=== PATIENT | male | born 1935 | race Caucasian/White ===

== ENCOUNTER → 2016-11-20 | Outpatient (CLI) | payer MEDICARE, BC ==
[~2016-11-20] MED LIST: ADVAIR 250/28 DISKU1 IH; ALLEGRA ALLERG180 MG PO; AMITRIPTYLINE H10 M2 PO; ASPIR LOW81 MG PO; ATROVENT I0.2 MG/1 M IH; FUROSEMIDE20 MG PO; FUROSEMIDE40 MG PO; KLOR-CON 1010 MEQ PO; LEVOFLOXACIN500 M1 PO; LEVOTHYROXINE125 MCG PO; PREDNISONE10 MG PO; SYNTHROID RP0.1 MG PO
[2016-11-20 13:27] VITALS: BP 118/71
== END ==
LOC: AMSURD 12:50
DX: I44.0 Atrioventricular block, first degree (principal); I49.9 Cardiac arrhythmia, unspecified

== ENCOUNTER → 2016-11-25 | Outpatient (CLI) | payer MEDICARE, BC ==
[2016-11-20 13:27] VITALS: BP 118/71
== END ==
LOC: LAB 09:55
DX: Z00.00 Encounter for general adult medical examination without abnormal findings (principal); I25.10 Atherosclerotic heart disease of native coronary artery without angina pectoris; G60.9 Hereditary and idiopathic neuropathy, unspecified; J45.40 Moderate persistent asthma, uncomplicated; E03.9 Hypothyroidism, unspecified

== ENCOUNTER → 2016-12-01 | Outpatient (CLI) | payer MEDICARE, BC ==
[2016-12-01 15:48] VITALS: BP 163/62
== END ==
LOC: AMSURD 14:27
DX: R00.2 Palpitations (principal)

== ENCOUNTER → 2017-01-27 | Outpatient (CLI) | payer MEDICARE, BC | LOC: LAB 11:51 | DX: E03.9 Hypothyroidism, unspecified (principal) ==

== ENCOUNTER → 2017-03-13 | Outpatient (CLI) | payer MEDICARE, BC ==
[2016-12-01 15:48] VITALS: BP 163/62
== END ==
LOC: RAD 10:35
DX: R06.02 Shortness of breath (principal); J43.9 Emphysema, unspecified; I70.90 Unspecified atherosclerosis

== ENCOUNTER → 2017-03-13 | Outpatient (CLI) | payer MEDICARE, BC ==
[2017-03-13 12:30] VITALS: BP 145/66
== END ==
LOC: LAB 11:08
DX: R06.02 Shortness of breath (principal)

== ENCOUNTER 2017-03-15 16:38 | Emergency (ER) | payer MEDICARE, BC ==
[~2017-03-15 16:38] MED LIST changes: -FUROSEMIDE20 MG PO; -FUROSEMIDE40 MG PO; -KLOR-CON 1010 MEQ PO; -LEVOFLOXACIN500 M1 PO; -PREDNISONE10 MG PO
[2017-03-15] MEDS ORDERED: LEVOFLOXACIN500 M1 PO (16:46)
[2017-03-15] MEDS ORDERED: FUROSEMIDE20 MG PO (18:35)
[2017-03-15 18:44] VITALS: BP 147/80
== END 2017-03-15 18:14 | disposition other institution (70) ==
LOC: ED 16:38
DX: J44.9 Chronic obstructive pulmonary disease, unspecified (principal); J44.1 Chronic obstructive pulmonary disease with (acute) exacerbation; I10 Essential (primary) hypertension; I50.9 Heart failure, unspecified
CPT/HCPCS: J2930

== ENCOUNTER 2017-03-15 18:14 | Inpatient (IN) | payer MEDICARE, BC ==
[~2017-03-15 18:14] MED LIST changes: +LEVOFLOXACIN500 M1 PO
[2017-03-15 18:35] VITALS: BP 167/87
[2017-03-15] MEDS ORDERED: FUROSEMIDE20 MG PO (18:35)
[2017-03-15 18:39] VITALS: BP 167/87
--- NOTE | 2017-03-15 22:30 | NUR ---
PT USING URINAL, AFTER LASIX GIVEN NOTABLE INCREASE IN OUTPUT, PT IS A/OX3, SBA WHEN GETTING UP, LS IN/EX WHEEZING AUDIBLE, REMAINS ON O2 @2L/NC, SINUS TACH ON MONITOR
[2017-03-15 23:08] VITALS: BP 145/73
[2017-03-16 03:16] VITALS: BP 157/80
[2017-03-16 06:19] VITALS: BP 149/72
--- NOTE | 2017-03-16 08:15 | NUR ---
Pt sitting up in chair. Denies pain this AM. Pt states that he feels much better this AM than yesterday. Breathing is improved, pt continues with exp wheezes throughout R lung.
[2017-03-16 11:40] VITALS: BP 132/68
--- NOTE | 2017-03-16 12:27 | NUR ---
Decreased O2 to 2L via NC.
[2017-03-16 15:03] VITALS: BP 126/60
[2017-03-16 18:41] VITALS: BP 144/76
--- NOTE | 2017-03-16 19:27 | NUR ---
Report received from Maria Del Carmen DOMINGUEZ. Patient sitting up in recliner watching TV. A/O x4. Denies pain. States has shortness of breath but it is better than it has been. States he hasn't noticed a change in shortness of breath with exertion vs sitting. Denies cough. Oxygen in place at 2 L/NC. TELE in place reading SR at 100 BPM. States having some "shaking". Currently on Albuterol tx and Solumedrol. Assessment completed. Lungs CTA but diminished. No wheezes noted. No pedal edema. Denies wants or needs at this time.
--- NOTE | 2017-03-16 20:14 | NUR ---
Up to BR to voide with assist of RN. RN noted patient to be unsteady with ambulation and cane.
--- NOTE | 2017-03-16 21:40 | NUR ---
Scheduled nebulizer tx administered. Patient states he would like to take his Elavil around 2330 per home routine.
[2017-03-16 23:01] VITALS: BP 140/71
--- NOTE | 2017-03-16 23:56 | NUR ---
Scheduled Solumedrol and HS Elavil given at this time. Elavil at this time per patient request per home routine. Watching TV. Denies pain. INT patent and flushes easily with NS. Bed alarm on. Call light in reach.
[2017-03-17] VITALS (7 sets, daily range): BP systolic 128–158; BP diastolic 62–79
--- NOTE | 2017-03-17 04:08 | NUR ---
Rests with eyes closed. No signs of pain or distress. VSS. Bed alarm on. Call light in reach.
--- NOTE | 2017-03-17 06:34 | NUR ---
States rested well and feeling better. Up to BR to try and have BM. Unsuccessful. Inquired if he would like a laxative. Refuses, states "it will come". Denies pain. IV Solumedrol given. INT patent and flushed easily with NS. PO Synthroid taken without difficulty. Heart monitor shows SR. Occasional PVC's noted. Bed alarm on. Call light in reach.
--- NOTE | 2017-03-17 07:03 | NUR ---
Report to Maria Del Carmen DOMINGUEZ.
--- NOTE | 2017-03-17 07:47 | NUR ---
Decreased O2 to 1L via NC. Pt reports that he is feeling "more normal today." States that he is still unsteady when walking and continues to c/o tremors in hands, especially after breathing tx and IV solumedrol.
--- NOTE | 2017-03-17 08:30 | NUR ---
Pt sitting up in recliner. Assessment complete as charted. O2 via NC @ 1L. Denies SOB at this time.
--- NOTE | 2017-03-17 13:48 | NUR ---
Disconnected O2 to assess saturation with and without exertion.
--- NOTE | 2017-03-17 14:45 | NUR ---
Pt working with PT. Turned off O2 to ambulate pt. Desats as charted and pt reports slightly fatigued and stops to sits fdc through 6 minute walk but recouperates quickly.
--- NOTE | 2017-03-17 15:56 | NUR ---
Pt noted to continue to sat at 91% RA while seated. Discussed with Latisha Bunch PA-C and returned pt to 1L O2 via NC.
--- NOTE | 2017-03-17 20:26 | NUR ---
Report received from Maria Del Carmen DOMINGUEZ. Patient resting supine in bed with oxygen in place at 1L/NC. States having "dry mouth". Mouth moisturizer provided by BALING MACHINE TENDER. Denies pain. No shortness of breath at rest. States when ambulating today with P.T. "had to stop and rest". INT patient to [facility]. Assessment completed. Denies further wants or needs at this time. Bed alarm on. Call light in reach.
--- NOTE | 2017-03-18 00:26 | NUR ---
Rests with eyes closed. Lying on side. No signs of pain or distress. Bed alarm on. Call light in reach.
[2017-03-18 03:04] VITALS: BP 158/82
[2017-03-18 06:22] VITALS: BP 147/69
--- NOTE | 2017-03-18 07:13 | NUR ---
Report to Analia DOMINGUEZ.
--- NOTE | 2017-03-18 10:40 | NUR ---
Shea reports to this nurse at this time that her and are discussing f/u options and new consults, information regarding ECHO and CT results faxed to , pending his reccomendations, if he suggests a f/u with tomorrow in house then we will proceed with those arrangements, and Shea may be discussing this patient with tomorrow regardless of if he can see pt in clinic due to scheduling, pt denies any recent acute changes, SOB noted with exertion, breathing stable on 1L O2 at this time, fully alert and oriented, no new concerns or needs at this time, will continue to monitor telemetry readings and pt's status
[2017-03-18 11:20] VITALS: BP 156/81
== END 2017-03-18 12:35 | disposition swing bed (61) | DRG 190 ==
LOC: MED/SURG 18:14
PROVIDERS: ADMIT Nurse Practitioner Primary Care
DX: J44.1 Chronic obstructive pulmonary disease with (acute) exacerbation (principal); I11.0 Hypertensive heart disease with heart failure; I50.21 Acute systolic (congestive) heart failure; I71.4 Abdominal aortic aneurysm, without rupture; E03.9 Hypothyroidism, unspecified; G62.9 Polyneuropathy, unspecified; R73.9 Hyperglycemia, unspecified; T38.0X5A Adverse effect of glucocorticoids and synthetic analogues, initial encounter
CPT/HCPCS: J1650; J1940; J2930; Q9967

== ENCOUNTER 2017-03-18 11:54 | Inpatient (IN) | payer MEDICARE, BC ==
[~2017-03-18] VITALS: Ht 175.3 cm; Wt 90.6 kg
[~2017-03-18 11:54] MED LIST changes: +FUROSEMIDE20 MG PO
--- NOTE | 2017-03-18 12:35 | NUR ---
PT SWITCHED OVER TO SWING BED STATUS AT THIS TIME, NO ACUTE CHANGES THIS SHIFT, UP WALKING IN THE HALLS THROUGHOUT SHIFT ON 1L O2, ORDERS TO DC TELE UPON ADMISSION TO SWING BED PROGRAM, NO NEW ORDERS AT THIS TIME, WILL CONTINUE TO MONITOR PATIENTS HEALTH STATUS THROUGHOUT SHIFT
--- NOTE | 2017-03-18 15:20 | NUR ---
PT C/O CHEST TIGHTNESS TO RAY AT THIS TIME, WILL ADMINISTER PRN XOPENEX PER RAY'S REQUEST AND CONTINUE TO ASSESS CHEST DISCOMFORT
--- NOTE | 2017-03-18 15:36 | NUR ---
AFTER XOPENEX BREATHING TX, PATIENT STATES "I'M ALL BACK TO NORMAL NOW." NO CHEST PAIN.
--- NOTE | 2017-03-18 17:44 | NUR ---
Pt denies any further chest discomfort since previous episode this afternoon, sitting up in chair at this time, denies pain, smiling affect, states earlier after his breathing tx and relaxing the pain went away, states he will notify staff if he experiences any future discomfort
[2017-03-18 18:12] VITALS: BP 170/71
--- NOTE | 2017-03-18 18:14 | NUR ---
PT IS SCHEDULED FOR F/U APPT WITH AT THE [facility] ON 03/26/17 AT 1330, WILL SET UP TRANSPORTATION METHOD IF PATIENT IS STILL AN INPATIENT AT [facility], PT NOTIFIED OF THIS APPOINTMENT
--- NOTE | 2017-03-18 18:27 | NUR ---
PT SITTING UP IN CHAIR, TALKING AND LAUGHING ON CELL PHONE, LEGS CROSSED AND APPEARS COMFORTABLE, SMILING AFFECT, DENIES NEEDS, STATES HE "FEELS FINE", BREATHING STABLE ON 1L O2 VIA NC, LUNGS CLEAR/DIMINISHED, CHAIR ALARM ON AND CALL LIGHT WITHIN REACH, DENIES ANY PAIN OR CHEST DISCOMFORT, WILL CONTINUE TO MONITOR
[2017-03-18 19:18] VITALS: BP 170/71
--- NOTE | 2017-03-18 21:36 | NUR ---
Report received from Analia DOMINGUEZ. Patient sitting up in chair. A/ox 4. Denies pain. No further chest pain episodes noted. Oxygen in place a 1L/NC. Lungs diminished all byrd. Denies cough today. INT patent to [facility]. Assessment completed. Call light in reach.
--- NOTE | 2017-03-18 22:59 | NUR ---
Oxygen was turned off earlier prior to nebulizer tx. Patient talking on phone for 20 Minutes. SAO2 checked and was 92% on RA. Oxygen replaced at 1L/NC. after nebulizer tx.
--- NOTE | 2017-03-18 23:49 | NUR ---
Sets off bed alarm. Sitting on EOB waiting on staff. Assisted to BR with one assist, gaitbelt and cane. Unsteady gait at times. Voids, assisted back to bed. Able to get self back in bed. Denies pain. Oxygen in place at 1L/NC. Bed alarm on. Call light in reach.
--- NOTE | 2017-03-19 04:18 | NUR ---
Rests supine in bed with eyes closed. Oxygen in place at 1L/NC. No signs of pain or distress. Bed alarm on. Call light in reach.
[2017-03-19 06:20] VITALS: BP 155/78
--- NOTE | 2017-03-19 07:15 | NUR ---
REPORT RECEIVED FROM BERNARD GEORGE LPN
--- NOTE | 2017-03-19 07:17 | NUR ---
Report to Ria DOMINGUEZ
--- NOTE | 2017-03-19 07:50 | NUR ---
МАРИНА FERNANDES IN WITH PATIENT.
--- NOTE | 2017-03-19 08:00 | NUR ---
PATIENT UP TO RECLINER. SHIFT ASSESSMENT COMPLETE. PATIENT ALERT AND ORIENTED X4. DENIES ANY PAIN OR DISCOMFORTS AT THIS TIME. DENIES HAVING ANY CHEST PAIN OR DISCOMFORTS AT THIS TIME. REPORTS THAT HE HAS NOT HAD ANY EPISODES OF CHEST PAIN OR DISCOMFORTS OTHER THAN ONE TIME EPISODE YESTERDAY AFTERNOON.ON OXYGEN VIA NASAL CANNULA AT 1L. REPORTS FEELING PRETTY GOOD TODAY COMPARED TO YESTERDAY. REPORTS BREATHING FEELS BETTER THAN YESTERDAY. STATES "I FEEL REALLY GOOD TODAY, I FEEL MORE STABLE" PATIENT'S CALL LIGHT WITHIN REACH. CHAIR ALARM ON.
[2017-03-19 08:32] VITALS: BP 170/71
[2017-03-19 18:01] VITALS: BP 149/70
--- NOTE | 2017-03-19 18:16 | NUR ---
Pt continues in [facility] working w/ therapies for endurance and strengthening and management of O2 in case he cannot be weaned off of it. Soledad Bunch given information on respiratory vest that pt has requested we look into. She will review and discuss it further w/ him. Pt anticipates returning to his home where he lives w/ his who is concerned about his weakness and assisting him in the bath. Pt will benefit from services upon discharge to home for SN to educate and monitor lung sounds and for therapies to work w/ him in his home environment.
--- NOTE | 2017-03-19 19:18 | NUR ---
Report received from Ria Rousseau RN
--- NOTE | 2017-03-19 19:35 | NUR ---
Pt resting in recliner, awake and a/o x 3. Denies having any pain or discomfort. Floor rounds with Ria Rousseau RN at 1928. 193 pt ambulated to the bathroom at 1930, gait steady. Used cane and gait belt. I was at pt's side.
--- NOTE | 2017-03-19 19:44 | NUR ---
REPORT GIVEN TO ALBERTO PHILLIPS
--- NOTE | 2017-03-19 21:30 | NUR ---
Pt ate pudding for evening snack, did own HS care. Currently resting in bed awake and a/o x 3, watching TV.
--- NOTE | 2017-03-20 01:16 | NUR ---
Resting in bed, eyes closed even respirations. Oxygen on at 1L/NC. Bed alarm on.
--- NOTE | 2017-03-20 04:00 | NUR ---
At 0340 bed alarm sounded. Pt found sitting up with legs hanging over the side of bed. Pt stated "I'm waiting to get up to the bathroom." Pt denied chest pain, SOB. Denied having any type of pain. Ambulated to the bathroom with cane gait belt, ceramic engineering professor sock and myself at pt side. Reviewed call light system with pt. Pt stated "I must have been a sleep still." Pt pleasant and smiling.
[2017-03-20 04:32] VITALS: BP 154/69
--- NOTE | 2017-03-20 04:48 | NUR ---
Pt oxygen continues at 1L/NC. Bed alarm on.
--- NOTE | 2017-03-20 07:16 | NUR ---
Report given to Ria Rousseau RN. Rounds made.
[2017-03-20 18:25] VITALS: BP 148/71
--- NOTE | 2017-03-20 19:20 | NUR ---
Report received from Ria Rousseau RN
--- NOTE | 2017-03-20 19:30 | NUR ---
Awake and a/o x 3. Sitting in recliner. Visitor at side. Pt denies SOB, chest pain or having any pain. Int DC. No redness, no swelling, none tender to touch. Covered with 2x2 gauze and wrapped. Pt instructed to leave on for several hours to ensure it does not bleed. Pt agreed
--- NOTE | 2017-03-21 00:27 | NUR ---
Q hourly checks done. Bed alarm on. Resting in bed with eyes closed. Respirations even. Oxygen on at 1L/NC. Pt has repositioned self
--- NOTE | 2017-03-21 01:22 | NUR ---
Report given to Leonie Larose LPN
--- NOTE | 2017-03-21 01:43 | NUR ---
Report received from Simone DOMINGUEZ. Patient rests supine in bed with eyes closed. Oxygen in place at 1L/NC. No signs of pain or distress. Bed alarm on. Call light in reach.
--- NOTE | 2017-03-21 04:57 | NUR ---
Up to BR with assist. Voids 425 ML of dark yellow urine. Denies pain. Assisted back to bed. Bed alarm on. Call light in reach.
--- NOTE | 2017-03-21 06:22 | NUR ---
Scheduled AM medications take, Moves from bed to recliner. Coffee given per request. Denies pain. Oxygen in place at 1L/NC.
[2017-03-21 06:30] VITALS: BP 130/68
--- NOTE | 2017-03-21 07:09 | NUR ---
Report to Maria Del Carmen DOMINGUEZ.
--- NOTE | 2017-03-21 09:56 | NUR ---
Pt sitting up in chair. Shift assessment complete as charted. Reports that he is feeling better and feels as though he is getting stronger. Pt on 1L O2 via NC. Continues to get SOB with activity. Pt reports no BM but feels as though he will have one today. Assist to ambulate to BR using cane. Pt is steady on ambulation.
[2017-03-21 18:20] VITALS: BP 152/74
--- NOTE | 2017-03-21 19:32 | NUR ---
Report received from Maria Del Carmen DOMINGUEZ. Patient sitting up in recliner with at bedside. Denies pain. Oxygen in place at 1L. Assessment completed. RLE with 1+ edema. Encouraged to elevate legs when sitting in chair, foot rest elevated on chair at this time. Call light in reach. Denies wants or needs.
--- NOTE | 2017-03-22 00:27 | NUR ---
Rests with eyes closed. No signs of pain or distress. Oxygen in place at 1L/NC. Bed alarm on. Call light in reach.
--- NOTE | 2017-03-22 03:56 | NUR ---
Awake, rings for assist to BR. Assisted back to bed. Denies pain. Oxygen in place at 1L/NC. Bed alarm on. Call light in reach.
[2017-03-22 06:22] VITALS: BP 140/76
--- NOTE | 2017-03-22 06:30 | NUR ---
Rested well all night. Up to BR PRN. Denies pain this AM. Oxygen in place at 1L/NC.
--- NOTE | 2017-03-22 07:16 | NUR ---
Report to Luna DOMINGUEZ.
--- NOTE | 2017-03-22 08:46 | NUR ---
Dr. Jeffery at bedside.
--- NOTE | 2017-03-22 09:02 | NUR ---
Patient alert and oriented. Denies pain. Oxygen saturation 94-95% on oxygen at 1 liter via nasal cannula. Oxygen decreased to 0.5L. Patient reports dry cough. States that he has been doing his IS and flutter valve independently every hour while awake. Denies needs or questions at this time. Fall precautions in place.
--- NOTE | 2017-03-22 10:30 | NUR ---
Oxygen saturation 92-94% on oxygen at 0.5 liters via nasal cannula. Visitor at bedside. Patient denies needs. Fall precautions in place.
--- NOTE | 2017-03-22 11:40 | NUR ---
Patient ambulated in hallway >150 feet. Steady gait noted with use of walker. Oxygen saturation with ambulation was 94-98% on oxygen at 0.5 liters via nasal cannula.
--- NOTE | 2017-03-22 15:52 | NUR ---
Patient ambulated to the kitchen and back to room 204 with one rest period. Steady gait noted with use of walker. Oxygen saturation 89-95% on room air with ambulation. Patient denies dizziness or shortness of breath. Denies pain. Denies needs or questions at this time. Fall precautions in place.
[2017-03-22 18:34] VITALS: BP 120/57
--- NOTE | 2017-03-22 20:45 | NUR ---
Report received from Luna DOMINGUEZ. Patient rests supine in bed with bed alarm on. A/Ox 4. Denies pain. SAO2 95% on RA after walking back from BR. Assessment completed. Denies wants or needs. Wants to take Elavil around 0. Watching TV. Call light in reach.
--- NOTE | 2017-03-22 23:38 | NUR ---
SAO2 93% on RA while sleeping.
--- NOTE | 2017-03-23 00:51 | NUR ---
Rests with eyes closed. No signs of pain or distress. Respirations even and non-labored on RA. Bed alarm on. Call light in reach.
--- NOTE | 2017-03-23 04:38 | NUR ---
Oxygen level spot checked at 0300 by RN INTAKE and was 93% on RA. No signs of respiratory distress. Resting well with eyes closed.
--- NOTE | 2017-03-23 06:17 | NUR ---
Awake, up in chair. Reuquests and given cup of coffee and eating his fiber bar. Denies pain. Pressure pad chair alarm on. Call light in reach.
[2017-03-23 06:24] VITALS: BP 135/69
--- NOTE | 2017-03-23 06:54 | NUR ---
Report to Luna DOMINGUEZ.
--- NOTE | 2017-03-23 07:45 | NUR ---
Patient alert and oriented. Sitting up in the recliner. Denies pain. Denies shortness of breath or dizziness. Reports productive cough in am. Sputum is pale yellow and sticky per patient. Patient denies needs or questions at this time. Fall precautions in place.
[2017-03-23 18:16] VITALS: BP 129/59
--- NOTE | 2017-03-23 22:30 | NUR ---
Report to Lis Larose, RELATIONS MANAGER
--- NOTE | 2017-03-23 22:47 | NUR ---
Report received from Maria Del Carmen DOMINGUEZ and care assumed at this time. Resting supine in bed with bed alarm on. Call light in reach. Denies pain. Assessment completed. States having a cough with very little production. "clear". Lungs CTA. +1 edemat to LLE. Scheduled HS medication taken. Denies wants or needs at this time.
--- NOTE | 2017-03-24 03:29 | NUR ---
Rests with eyes closed. No signs of pain or distress. Bed alarm on. Call lighti in reach.
--- NOTE | 2017-03-24 06:24 | NUR ---
Rested well all shift. Awake and watching TV. Takes AM medication without difficulty. Denies pain. Requests and given cup of coffee. Bed alarm on. Call light in reach.
[2017-03-24 06:27] VITALS: BP 119/72
--- NOTE | 2017-03-24 07:04 | NUR ---
Report to Luna DOMINGUEZ
--- NOTE | 2017-03-24 17:53 | NUR ---
Pt rings bathroom call light, this nurse responds, by then time I entered room pt had independently walked himself with his cane back to his recliner and was sitting down, pt educated to wait for staff assistance in order to assure safety, pt smiles and nods his head
[2017-03-24 18:37] VITALS: BP 131/65
--- NOTE | 2017-03-24 19:23 | NUR ---
Report received from Luna Cortés RN
--- NOTE | 2017-03-24 19:25 | NUR ---
Pt awake and a/o x 3, sitting in recliner, talking on cell phone.
--- NOTE | 2017-03-24 20:00 | NUR ---
Awake and a/o x 3, sitting in recliner. Denies having any chest pain, SOB, abd pain or nausea. States he continues to have slight cough. See shift assessment. Pt states he had small BM today (03/24/17). States he is passing gas.
--- NOTE | 2017-03-24 20:20 | NUR ---
Pt ambulating in hallway with GATE AGENT Romi. Wearing giat belt, shoes and using cane. Gait steady.
--- NOTE | 2017-03-24 20:50 | NUR ---
Pt Awake and a/o x 3. Had pudding for evening snack. Did own HS care. Skin on coccyx CDI, normal in color. Used incentive spirometer, able to reach 2000 x 10. Bed alarm set.
--- NOTE | 2017-03-24 22:05 | NUR ---
Resting in bed awake and a/o x 3. Denies chest pain, SOB. Denies having any pain or nausea.
--- NOTE | 2017-03-25 06:02 | NUR ---
Q hourly checks done. Bed alarm has been on. Pt ambulated x 1 to the bathroom x 1 with assistance and used cane. Currently awake and a/o x 3. Denies SOB, chest pain. Continues to have cough.
--- NOTE | 2017-03-25 06:10 | NUR ---
Pt given cup of black coffee, per pt request.
[2017-03-25 06:24] VITALS: BP 141/62
--- NOTE | 2017-03-25 07:16 | NUR ---
Report given to Bettina Chapa RN
--- NOTE | 2017-03-25 07:17 | NUR ---
report from Merissa DOMINGUEZ
--- NOTE | 2017-03-25 08:50 | NUR ---
awake, alert, up in chair at bedside, talkative, denies complaint or request
--- NOTE | 2017-03-25 10:08 | NUR ---
currently up in halls with therapy
--- NOTE | 2017-03-25 13:04 | NUR ---
report to Maria Del Carmen DOMINGUEZ
[2017-03-25] MEDS ORDERED: PREDNISONE10 MG PO (15:55)
[2017-03-25] MEDS ORDERED: ATROVENT I0.2 MG/1 M IH (15:55)
[2017-03-25] MEDS ORDERED: FUROSEMIDE40 MG PO (15:55)
[2017-03-25] MEDS ORDERED: KLOR-CON 1010 MEQ PO (15:55)
[2017-03-25 18:16] VITALS: BP 154/75
--- NOTE | 2017-03-25 19:20 | NUR ---
Report received from Maria Del Carmen Mack RN
--- NOTE | 2017-03-25 20:00 | NUR ---
Awake and a/o x 3, sitting up in recliner with feet elevated. See shift assessment
--- NOTE | 2017-03-25 20:30 | NUR ---
Awake and a/o x 3, up ambulating in hallway. Using cane, gait belt. Shoes on STRETCH MACHINE OPERATOR Romi at side.
--- NOTE | 2017-03-25 21:35 | NUR ---
At 2039 ambulated to the bathroom, voided 500mls of yellow urine. Did own HS care. Returned to recliner, elevated feet. Watching TV.
--- NOTE | 2017-03-25 21:35 | NUR ---
Ambulated to bed, used cane, gait belt, shop helper socks on. .NET ARCHITECT Romi at side. Denies chest pain, SOB. Bed alarm set.
--- NOTE | 2017-03-25 23:44 | NUR ---
Resting in bed, eyes closed, even respirations. Q hourly checks done. Bed alarm on.
--- NOTE | 2017-03-26 02:15 | NUR ---
Q hourly checks done. Bed alarm on. Pt awake, a/o x 3, watching TV. Pt denies having chest pain, SOB and denies having any needs.
--- NOTE | 2017-03-26 05:48 | NUR ---
Currently awake and a/o x 3. Pt denies chest pain, SOB or having any needs. Pt stated he "feel back to sleep and slept hard." Pt given cup of coffee.
[2017-03-26 06:16] VITALS: BP 141/64
--- NOTE | 2017-03-26 07:00 | NUR ---
Report received from ALBERTO Nichols. Pt resting comfortably without complaints.
--- NOTE | 2017-03-26 12:01 | NUR ---
Discussed discharge instructions with the patient. and patient questioned advair instructions. Prior to admit, pt was administering one inhalation twice daily and orders were for once daily. Also reports was on 137 mcg of synthroid prior to admission and discharge order states 125 mcg. Called and spoke with Dr. Jose D Hernandez's nurse for clarification. Will wait for return call.
--- NOTE | 2017-03-26 12:21 | NUR ---
Four new scripts called in to [facility] at [address] per patients request. Ipratroprium, potassium, lasix and prednisone were all called in to Maia, pharmacist. Mary with Dr. Jeffery's office will call patient after she is able to clarify orders for advair and synthroid. Pt and spouse verbalized understanding of these instructions.
--- NOTE | 2017-03-26 12:28 | NUR ---
Spoke with Dr. Jeffery regarding advair and synthroid orders. He confirmed to continue prior to admit dose of one puff twice daily and to continue 137 mcg daily as ordered prior to admit. Patient and spouse updated and verbalized understanding. Written scripts also provided for new medications just in case they have troubles at the pharmacy.
--- NOTE | 2017-03-26 12:37 | NUR ---
Pt escorted via ambulation with stand-by assist with use of cane. This nurse walked patient to his personal vehicle. Vital signs stable. Pt had no home meds to send with him. Discharge instructions reviewed with both patient and spouse. Questions answered with verbalization of understanding. Pt left in personal vehicle with driving. Follow-up appointment scheduled with Dr. Jeffery for 04/02/17 at 2:30 PM as scheduled by this nurse.
== END 2017-03-26 12:37 | disposition home or self-care (01) | DRG 947 ==
LOC: MED/SURG 11:54
PROVIDERS: ADMIT Physician Assistant
DX: R53.81 Other malaise (principal); I11.0 Hypertensive heart disease with heart failure; I50.21 Acute systolic (congestive) heart failure; I71.4 Abdominal aortic aneurysm, without rupture; J44.1 Chronic obstructive pulmonary disease with (acute) exacerbation; R73.9 Hyperglycemia, unspecified
CPT/HCPCS: J1650; J2930; J7512

== ENCOUNTER → 2017-04-30 | Outpatient (CLI) | payer MEDICARE, BC ==
[~2017-04-30] MED LIST changes: +FUROSEMIDE40 MG PO; +KLOR-CON 1010 MEQ PO; +PREDNISONE10 MG PO
== END ==
LOC: LAB 14:23
DX: I50.22 Chronic systolic (congestive) heart failure (principal)

== ENCOUNTER 2017-06-01 13:57 | Outpatient (RCR) | payer MEDICARE, BC | END 2017-08-30 | disposition home or self-care (01) | LOC: CARDREHAB | DX: J43.8 Other emphysema (principal); I50.22 Chronic systolic (congestive) heart failure; I48.91 Unspecified atrial fibrillation; I25.10 Atherosclerotic heart disease of native coronary artery without angina pectoris ==

== ENCOUNTER → 2017-08-04 | Outpatient (CLI) | payer MEDICARE, BC | LOC: LAB 10:59 | DX: I50.22 Chronic systolic (congestive) heart failure (principal); E87.6 Hypokalemia; D64.9 Anemia, unspecified ==

== ENCOUNTER → 2017-08-12 | Outpatient (CLI) | payer MEDICARE, BC | LOC: LAB 10:06 | DX: D64.9 Anemia, unspecified (principal); I50.22 Chronic systolic (congestive) heart failure; E87.6 Hypokalemia ==

== ENCOUNTER → 2017-08-26 | Outpatient (CLI) | payer MEDICARE, BC | LOC: LAB 11:59 | DX: E03.9 Hypothyroidism, unspecified (principal) ==

== ENCOUNTER 2017-09-06 10:00 | Outpatient (RCR) | payer MEDICARE, BC | END 2017-12-20 | disposition home or self-care (01) | LOC: CARDREHAB | DX: Z51.89 Encounter for other specified aftercare (principal); I50.22 Chronic systolic (congestive) heart failure; I25.10 Atherosclerotic heart disease of native coronary artery without angina pectoris; I48.91 Unspecified atrial fibrillation; J44.9 Chronic obstructive pulmonary disease, unspecified; Z88.7 Allergy status to serum and vaccine ==

== ENCOUNTER → 2017-11-19 | Outpatient (CLI) | payer MEDICARE, BC ==
[2017-11-19 11:17] LABS: HEMATOCRIT 35.3 % (42.0-52.0); HEMOGLOBIN 11.3 g/dL (13.5-18.0); MEAN PLATELET VOLUME 10.6 fl (7.4-10.4); RED BLOOD COUNT 3.6 M/mm3 (4.20-5.60); RED CELL DISTRIBUTION WIDTH 19.7 % (11.5-14.5)
[2017-11-20 02:39] LABS: FOLATE (FOLIC ACID) >20.0 ng/mL (7.0-31.4)
== END ==
LOC: LAB 10:51
PROVIDERS: Family Medicine
DX: D64.9 Anemia, unspecified (principal)

== ENCOUNTER 2018-01-26 12:00 | Outpatient (RCR) | payer MEDICARE, BC ==
[2018-04-01] MEDS ORDERED: IPRATROPIUM BROM3 M1 IH (14:18)
[2018-04-01] MEDS ORDERED: ADVAIR DISKUS1 DS2 IH (14:18)
[2018-04-01] MEDS ORDERED: QUALITY CHOICE325 MG PO (14:19)
[2018-04-01] MEDS ORDERED: FOLIC ACID1 MG PO (14:19)
[2018-04-01] MEDS ORDERED: METOPROLOL SUCC25 M1 PO (14:20)
[2018-04-01] MEDS ORDERED: PRINIVIL5 M1 PO (14:22)
[2018-04-02] MEDS ORDERED: LEVOTHYROXINE125 MCG PO (14:03)
[2018-04-02] MEDS ORDERED: PREDNISONE10 MG PO ×2 (14:06→15:30)
== END 2018-04-26 | disposition home or self-care (01) ==
LOC: CARDREHAB
DX: I50.22 Chronic systolic (congestive) heart failure (principal); I25.10 Atherosclerotic heart disease of native coronary artery without angina pectoris; I48.91 Unspecified atrial fibrillation; J44.9 Chronic obstructive pulmonary disease, unspecified

== ENCOUNTER 2018-04-01 14:00 | Observation (INO) | payer MEDICARE, BC ==
[~2018-04-01] VITALS: Ht 180.3 cm; Wt 92.6 kg
[2018-04-01] MEDS ORDERED: ADVAIR DISKUS1 DS2 IH (14:18)
[2018-04-01] MEDS ORDERED: IPRATROPIUM BROM3 M1 IH (14:18)
[2018-04-01] MEDS ORDERED: QUALITY CHOICE325 MG PO (14:19)
[2018-04-01] MEDS ORDERED: FOLIC ACID1 MG PO (14:19)
[2018-04-01] MEDS ORDERED: METOPROLOL SUCC25 M1 PO (14:20)
[2018-04-01] MEDS ORDERED: PRINIVIL5 M1 PO (14:22)
[2018-04-01 15:01] LABS: HEMATOCRIT 32.1 % (42.0-52.0); HEMOGLOBIN 10.4 g/dL (13.5-18.0); MEAN CELL VOLUME 102 fl (78-100); MEAN CORPUSCULAR HEMOGLOBIN 33 pg (27-31); MEAN CORPUSCULAR HGB CONC 32 g/dL (33-37); MEAN PLATELET VOLUME 10.1 fl (7.4-10.4); PLATELET COUNT 356 K/mm3 (130-400); RED BLOOD COUNT 3.15 M/mm3 (4.20-5.60); RED CELL DISTRIBUTION WIDTH 17.9 % (11.5-14.5); WHITE BLOOD COUNT 6.2 K/mm3 (4.8-10.8)
[2018-04-01 15:08] LABS: ALBUMIN 4.2 g/dL (3.5-5.0); BUN/CREATININE RATIO 20.6 (6.0-26.0); CALCIUM 9.3 mg/dL (8.4-10.2); TOTAL BILIRUBIN 0.4 mg/dL (0.2-1.3); TOTAL PROTEIN 7.6 g/dL (6.3-8.2)
[2018-04-01 17:52] LABS: BAND 1 % (0-10); HYPOCHROMIA 1+; LYMPHOCYTE 14 % (20-51); MONOCYTE 5 % (3-10); NEUTROPHILS 80 % (42-75); NUCLEATED RED BLOOD CELL 1 (0-6); POLYCHROMASIA 1+
[2018-04-01 17:56] LABS: TROPONIN-I 0.33 ng/mL (0.00-0.06)
[2018-04-01 18:33] VITALS: BP 141/76
[2018-04-01 18:34] VITALS: BP 141/76
[2018-04-01 23:00] VITALS: BP 100/47
[2018-04-02 02:41] VITALS: BP 95/51
[2018-04-02 06:28] VITALS: BP 101/56
[2018-04-02 07:52] LABS: TROPONIN-I 0.18 ng/mL (0.00-0.06)
[2018-04-02 09:47] VITALS: BP 123/56
[2018-04-02 10:51] VITALS: BP 106/57
[2018-04-02] MEDS ORDERED: LEVOTHYROXINE125 MCG PO (14:03)
[2018-04-02] MEDS ORDERED: PREDNISONE10 MG PO ×2 (14:06→15:30)
[2018-04-02 15:00] VITALS: BP 126/67
== END 2018-04-02 16:16 | disposition home or self-care (01) ==
LOC: ED 14:00 → MED/SURG 17:45
PROVIDERS: Nurse Practitioner Primary Care; ADMIT Family Medicine
DX: J44.1 Chronic obstructive pulmonary disease with (acute) exacerbation (principal); R79.89 Other specified abnormal findings of blood chemistry; I25.10 Atherosclerotic heart disease of native coronary artery without angina pectoris; I71.9 Aortic aneurysm of unspecified site, without rupture; I25.2 Old myocardial infarction; I11.0 Hypertensive heart disease with heart failure; I50.9 Heart failure, unspecified; E78.5 Hyperlipidemia, unspecified; E03.9 Hypothyroidism, unspecified; Z79.82 Long term (current) use of aspirin; Z87.891 Personal history of nicotine dependence; R07.9 Chest pain, unspecified
CPT/HCPCS: G0378; J1940; J7512

== ENCOUNTER → 2018-04-08 | Outpatient (CLI) | payer MEDICARE, BC ==
[2018-04-02 15:00] VITALS: BP 126/67
[~2018-04-08] MED LIST changes: +ADVAIR DISKUS1 DS2 IH; +FOLIC ACID1 MG PO; +IPRATROPIUM BROM3 M1 IH; +METOPROLOL SUCC25 M1 PO; +PRINIVIL5 M1 PO; +QUALITY CHOICE325 MG PO
== END ==
LOC: CARDREHAB 08:45 → CARDLAB 10:14
DX: R94.31 Abnormal electrocardiogram [ECG] [EKG] (principal)
CPT/HCPCS: A9500

== ENCOUNTER → 2018-04-13 | Outpatient (CLI) | payer MEDICARE, BC ==
[2018-04-02 15:00] VITALS: BP 126/67
[2018-04-13 23:07] LABS: FOLATE (FOLIC ACID) 19.4 ng/mL (7.0-31.4)
== END ==
LOC: LAB 12:27
PROVIDERS: Family Medicine
DX: I50.22 Chronic systolic (congestive) heart failure (principal); J44.9 Chronic obstructive pulmonary disease, unspecified; R53.1 Weakness; D64.9 Anemia, unspecified

== ENCOUNTER 2018-04-27 13:00 | Outpatient (RCR) | payer MEDICARE, BC | END 2018-08-03 15:00 | disposition home or self-care (01) | LOC: CARDREHAB 13:00 | DX: I50.22 Chronic systolic (congestive) heart failure (principal); J44.9 Chronic obstructive pulmonary disease, unspecified; I25.10 Atherosclerotic heart disease of native coronary artery without angina pectoris; I48.91 Unspecified atrial fibrillation ==

== ENCOUNTER 2018-10-05 03:48 | Emergency (ER) | payer MEDICARE, BC ==
[2018-10-05 04:43] LABS: HEMATOCRIT 30.8 % (42.0-52.0); HEMOGLOBIN 10.4 g/dL (13.5-18.0); MEAN CELL VOLUME 100 fl (78-100); MEAN CORPUSCULAR HEMOGLOBIN 34 pg (27-31); MEAN CORPUSCULAR HGB CONC 34 g/dL (33-37); MEAN PLATELET VOLUME 10.8 fl (7.4-10.4); PLATELET COUNT 255 K/mm3 (130-400); RED BLOOD COUNT 3.07 M/mm3 (4.20-5.60); RED CELL DISTRIBUTION WIDTH 18.3 % (11.5-14.5); WHITE BLOOD COUNT 16.7 K/mm3 (4.8-10.8)
[2018-10-05 04:55] LABS: ALBUMIN 4.3 g/dL (3.5-5.0); CALCIUM 9.6 mg/dL (8.4-10.2); POTASSIUM 4.3 mmol/L (3.6-5.0); TOTAL BILIRUBIN 1.6 mg/dL (0.2-1.3); TOTAL PROTEIN 7.1 g/dL (6.3-8.2)
[2018-10-05] MEDS ORDERED: FLOMAX0.4 MG PO (05:05)
[2018-10-05 05:16] LABS: URINE APPEARANCE CLEAR; URINE COLOR YELLOW; URINE GLUCOSE NEGATIVE (NEGATIVE); URINE KETONE NEGATIVE (NEGATIVE); URINE PROTEIN(semi-quant) TRACE mg/dL (NEGATIVE)
[2018-10-05 05:17] LABS: URINE BILIRUBIN NEGATIVE (NEGATIVE); URINE BLOOD NEGATIVE (NEGATIVE); URINE LEUKOCYTE ESTERASE NEGATIVE (NEGATIVE); URINE MUCUS PRESENT (NOT PRESENT); URINE NITRATE NEGATIVE (NEGATIVE); URINE UROBILINOGEN NORMAL (NORMAL); URINE WBC 0-1 /hpf (0-3)
[2018-10-05 05:18] LABS: BAND 2 % (0-10); LYMPHOCYTE 11 % (20-51); MONOCYTE 22 % (3-10); NEUTROPHILS 65 % (42-75)
[2018-10-05 05:19] LABS: OVALOCYTES 1+
[2018-10-05 05:40] VITALS: BP 98/57
[2018-10-08] MEDS ORDERED: ENOXAPARIN40 MG/0.1 SQ (08:41)
[2018-10-08] MEDS ORDERED: FERROUS SU325 MG/TAB PO (08:41)
[2018-10-08] MEDS ORDERED: DOCUSATE SOD100 MG PO (08:41)
[2018-10-08] MEDS ORDERED: NOVOLOG FLEX100 U/ML SQ (08:41)
[2018-10-08] MEDS ORDERED: ACETAMINOPHEN325 M1 PO (08:41)
[2018-10-08] MEDS ORDERED: SOLU-MEDRO125 MG/21 IV (08:41)
[2018-10-08] MEDS ORDERED: ZITHROMAX500 M2 PO (08:41)
== END 2018-10-05 05:30 | disposition other institution (70) ==
LOC: ED 03:48
PROVIDERS: Nurse Practitioner Family
DX: A41.9 Sepsis, unspecified organism (principal); J44.0 Chronic obstructive pulmonary disease with (acute) lower respiratory infection; J20.9 Acute bronchitis, unspecified; J44.1 Chronic obstructive pulmonary disease with (acute) exacerbation; I48.91 Unspecified atrial fibrillation; I25.10 Atherosclerotic heart disease of native coronary artery without angina pectoris; I50.9 Heart failure, unspecified; E03.9 Hypothyroidism, unspecified; Z85.51 Personal history of malignant neoplasm of bladder; I71.9 Aortic aneurysm of unspecified site, without rupture; Z79.82 Long term (current) use of aspirin; Z87.891 Personal history of nicotine dependence; Z95.5 Presence of coronary angioplasty implant and graft; N40.0 Benign prostatic hyperplasia without lower urinary tract symptoms; G62.9 Polyneuropathy, unspecified
CPT/HCPCS: A4216; J0696; J7030

== ENCOUNTER 2018-10-08 09:56 | Inpatient (IN) | payer MEDICARE, BC ==
[~2018-10-08] VITALS: Ht 180.3 cm; Wt 96.1 kg
[~2018-10-08 09:56] MED LIST changes: +ACETAMINOPHEN325 M1 PO; +DOCUSATE SOD100 MG PO; +ENOXAPARIN40 MG/0.1 SQ; +FERROUS SU325 MG/TAB PO; +FLOMAX0.4 MG PO; +NOVOLOG FLEX100 U/ML SQ; +SOLU-MEDRO125 MG/21 IV; +ZITHROMAX500 M2 PO
[2018-10-08 10:50] VITALS: BP 132/65
[2018-10-08 14:25] VITALS: BP 112/70
[2018-10-08] MEDS ORDERED: PROTONIX TR40 M1 PO (17:47)
[2018-10-08] MEDS ORDERED: ZITHROMAX 250M250 MG PO (17:48)
[2018-10-08] MEDS ORDERED: TYLENOL 325MG325 MG PO (17:52)
[2018-10-08 18:20] VITALS: BP 125/66
[2018-10-08 18:21] VITALS: BP 125/66
[2018-10-08 19:02] VITALS: BP 125/66
[2018-10-09 06:11] VITALS: BP 148/56
[2018-10-09 18:45] VITALS: BP 137/71
[2018-10-10 06:20] VITALS: BP 150/56
[2018-10-10 07:10] LABS: HEMATOCRIT 28.6 % (42.0-52.0); HEMOGLOBIN 9.7 g/dL (13.5-18.0); MEAN CELL VOLUME 99 fl (78-100); MEAN CORPUSCULAR HEMOGLOBIN 34 pg (27-31); MEAN CORPUSCULAR HGB CONC 34 g/dL (33-37); MEAN PLATELET VOLUME 10.5 fl (7.4-10.4); PLATELET COUNT 346 K/mm3 (130-400); RED BLOOD COUNT 2.88 M/mm3 (4.20-5.60); RED CELL DISTRIBUTION WIDTH 18.4 % (11.5-14.5); WHITE BLOOD COUNT 10.9 K/mm3 (4.8-10.8)
[2018-10-10 07:15] LABS: ALBUMIN 3.5 g/dL (3.5-5.0); CALCIUM 9.3 mg/dL (8.4-10.2); POTASSIUM 4.5 mmol/L (3.6-5.0); TOTAL BILIRUBIN 0.7 mg/dL (0.2-1.3)
[2018-10-10 07:32] LABS: BAND 1 % (0-10); LYMPHOCYTE 22 % (20-51); MONOCYTE 10 % (3-10); NEUTROPHILS 67 % (42-75); OVALOCYTES 2+; TARGET CELLS 1+
[2018-10-10 18:33] VITALS: BP 145/65
[2018-10-11 06:25] VITALS: BP 131/68
[2018-10-11 18:10] VITALS: BP 97/56
[2018-10-12 06:03] VITALS: BP 146/66
[2018-10-12 13:14] VITALS: BP 95/60
[2018-10-12 14:00] VITALS: BP 100/45
[2018-10-12 18:40] VITALS: BP 143/63
[2018-10-13 05:46] VITALS: BP 143/67
[2018-10-13] MEDS ORDERED: PREDNISONE20 MG PO (06:43)
[2018-10-13] MEDS ORDERED: DOCUSATE SOD100 MG PO (06:43)
[2018-10-13] MEDS ORDERED: CEFDINIR300 MG PO (06:43)
[2018-10-13 07:31] LABS: CALCIUM 9.6 mg/dL (8.4-10.2); POTASSIUM 4.4 mmol/L (3.6-5.0)
[2018-10-13 07:34] LABS: HEMATOCRIT 29.8 % (42.0-52.0); MEAN CELL VOLUME 98 fl (78-100); MEAN CORPUSCULAR HEMOGLOBIN 33 pg (27-31); MEAN CORPUSCULAR HGB CONC 34 g/dL (33-37); MEAN PLATELET VOLUME 9.8 fl (7.4-10.4); PLATELET COUNT 379 K/mm3 (130-400); RED BLOOD COUNT 3.04 M/mm3 (4.20-5.60); RED CELL DISTRIBUTION WIDTH 18.7 % (11.5-14.5); WHITE BLOOD COUNT 11.4 K/mm3 (4.8-10.8)
[2018-10-13 07:47] LABS: LYMPHOCYTE 34 % (20-51); MONOCYTE 11 % (3-10); NEUTROPHILS 54 % (42-75); TARGET CELLS 1+
[2018-10-13 07:48] LABS: OVALOCYTES 1+; POLYCHROMASIA 1+
[2018-10-13 07:50] LABS: NUCLEATED RED BLOOD CELL 2 (0-6)
[2018-10-13 10:00] VITALS: BP 151/64
== END 2018-10-13 10:45 | disposition home or self-care (01) | DRG 191 ==
LOC: MED/SURG 09:56
PROVIDERS: ADMIT Family Medicine
DX: J44.1 Chronic obstructive pulmonary disease with (acute) exacerbation (principal); E27.40 Unspecified adrenocortical insufficiency; R53.1 Weakness; I48.2 Chronic atrial fibrillation; D50.9 Iron deficiency anemia, unspecified; R73.9 Hyperglycemia, unspecified
CPT/HCPCS: J1650; J2930; J7512

== ENCOUNTER 2018-10-19 10:35 | Outpatient (RCR) | payer MEDICARE, BC ==
[~2018-10-19 10:35] MED LIST changes: +CEFDINIR300 MG PO; +PREDNISONE20 MG PO; +PROTONIX TR40 M1 PO; +TYLENOL 325MG325 MG PO; +ZITHROMAX 250M250 MG PO
[2018-12-07] MEDS ORDERED: FOLIC ACID1 MG PO (14:06)
[2018-12-07] MEDS ORDERED: INCRUSE EL62.5 MCG/A IH (14:08)
[2018-12-09] MEDS ORDERED: LEVOFLOXACIN750 MG PO (13:31)
[2018-12-09] MEDS ORDERED: PULMICORT0.5 MG/2 M IH (13:34)
[2018-12-09] MEDS ORDERED: PREDNISONE10 MG PO (13:36)
[2018-12-09] MEDS ORDERED: ELIQUIS5 MG PO (13:38)
== END 2019-01-17 | disposition still patient (30) ==
LOC: CARDREHAB
DX: I50.9 Heart failure, unspecified (principal); I20.9 Angina pectoris, unspecified

== ENCOUNTER → 2018-10-20 | Outpatient (CLI) | payer MEDICARE, BC ==
[2018-10-13 10:00] VITALS: BP 151/64
[2018-10-20 11:55] LABS: HEMATOCRIT 32.8 % (42.0-52.0); HEMOGLOBIN 10.6 g/dL (13.5-18.0); MEAN CELL VOLUME 101 fl (78-100); MEAN CORPUSCULAR HEMOGLOBIN 33 pg (27-31); MEAN CORPUSCULAR HGB CONC 32 g/dL (33-37); MEAN PLATELET VOLUME 10.5 fl (7.4-10.4); PLATELET COUNT 277 K/mm3 (130-400); RED BLOOD COUNT 3.24 M/mm3 (4.20-5.60); RED CELL DISTRIBUTION WIDTH 19.6 % (11.5-14.5)
[2018-10-20 12:19] LABS: CALCIUM 9.8 mg/dL (8.4-10.2); POTASSIUM 4.9 mmol/L (3.6-5.0)
[2018-10-20 13:14] LABS: LYMPHOCYTE 24 % (20-51); MONOCYTE 21 % (3-10); NEUTROPHILS 52 % (42-75)
[2018-10-20 13:20] LABS: HYPOCHROMIA 2+
== END ==
LOC: LAB 11:33
PROVIDERS: Family Medicine
DX: I50.22 Chronic systolic (congestive) heart failure (principal); J44.9 Chronic obstructive pulmonary disease, unspecified; D64.9 Anemia, unspecified

== ENCOUNTER → 2018-10-28 | Outpatient (CLI) | payer MEDICARE, BC ==
[2018-10-13 10:00] VITALS: BP 151/64
== END ==
LOC: LAB 13:59
DX: R53.1 Weakness (principal)

== ENCOUNTER → 2018-11-28 | Outpatient (CLI) | payer MEDICARE, BC ==
[2018-11-28 12:16] LABS: HEMATOCRIT 32.6 % (42.0-52.0); HEMOGLOBIN 10.5 g/dL (13.5-18.0); MEAN PLATELET VOLUME 10.2 fl (7.4-10.4); RED BLOOD COUNT 3.21 M/mm3 (4.20-5.60); RED CELL DISTRIBUTION WIDTH 19.6 % (11.5-14.5); WHITE BLOOD COUNT 7.5 K/mm3 (4.8-10.8)
[2018-11-29 00:50] LABS: FOLATE (FOLIC ACID) 9.9 ng/mL (7.0-31.4)
== END ==
LOC: LAB 11:15
PROVIDERS: Family Medicine
DX: D53.9 Nutritional anemia, unspecified (principal)

== ENCOUNTER → 2019-01-17 | Outpatient (CLI) | payer MEDICARE, BC ==
[2018-12-09 15:00] VITALS: BP 122/61
[~2019-01-17] MED LIST changes: +ELIQUIS5 MG PO; +INCRUSE EL62.5 MCG/A IH; +LEVOFLOXACIN750 MG PO; +PULMICORT0.5 MG/2 M IH
[2019-01-17 13:56] LABS: HEMATOCRIT 31.6 % (42.0-52.0); HEMOGLOBIN 9.9 g/dL (13.5-18.0); RED BLOOD COUNT 3.17 M/mm3 (4.20-5.60); RED CELL DISTRIBUTION WIDTH 20.1 % (11.5-14.5); WHITE BLOOD COUNT 6.9 K/mm3 (4.8-10.8)
[2019-01-18 00:48] LABS: FOLATE (FOLIC ACID) 16.3 ng/mL (7.0-31.4)
== END ==
LOC: LAB 13:25
PROVIDERS: Family Medicine
DX: D64.89 Other specified anemias (principal)

== ENCOUNTER → 2019-03-20 | Outpatient (CLI) | payer MEDICARE, BC ==
[2018-12-09 15:00] VITALS: BP 122/61
[2019-03-20 10:36] LABS: HEMATOCRIT 31.2 % (42.0-52.0); MEAN PLATELET VOLUME 10.2 fl (7.4-10.4); RED BLOOD COUNT 3.1 M/mm3 (4.20-5.60); RED CELL DISTRIBUTION WIDTH 20.4 % (11.5-14.5); WHITE BLOOD COUNT 6.3 K/mm3 (4.8-10.8)
[2019-03-21 16:45] LABS: FOLATE (FOLIC ACID) 19.4 ng/mL (7.0-31.4)
== END ==
LOC: LAB 10:25
PROVIDERS: Family Medicine
DX: D53.9 Nutritional anemia, unspecified (principal); E03.9 Hypothyroidism, unspecified

== ENCOUNTER 2019-04-03 10:40 | Outpatient (RCR) | payer MEDICARE, BC ==
[2018-12-09 15:00] VITALS: BP 122/61
[2019-04-06] MEDS ORDERED: FERROUS SULFAT325 M4 PO (18:44)
[2019-04-06] MEDS ORDERED: LISINOPRIL2.5 MG PO (18:44)
[2019-04-06] MEDS ORDERED: YUPELRI175 MCG/3 IH (18:45)
[2019-04-09] MEDS ORDERED: BIAXIN 500MG T500 MG PO (10:05)
[2019-04-09] MEDS ORDERED: PREDNISONE10 MG PO (10:08)
[2019-04-09] MEDS ORDERED: Patient's Own Medica IH (10:08)
[2019-04-09] MEDS ORDERED: PANTOPRAZOLE SO40 MG PO (10:10)
== END 2019-04-18 | disposition home or self-care (01) ==
LOC: CARDREHAB
DX: Z51.89 Encounter for other specified aftercare (principal); I20.9 Angina pectoris, unspecified; I50.9 Heart failure, unspecified

== ENCOUNTER 2019-04-06 17:56 | Emergency (ER) | payer MEDICARE, BC ==
[~2019-04-06] VITALS: Wt 96.8 kg
[2019-04-06] MEDS ORDERED: LISINOPRIL2.5 MG PO (18:44)
[2019-04-06] MEDS ORDERED: FERROUS SULFAT325 M4 PO (18:44)
[2019-04-06] MEDS ORDERED: YUPELRI175 MCG/3 IH (18:45)
[2019-04-06 19:07] LABS: D-DIMER 0.25 mg/L FEU (0.15-0.50)
[2019-04-06 19:08] LABS: ALT/SGPT 14 U/L (0-55); AST-SGOT 15 U/L (5-34); CARBON DIOXIDE 23 mmol/L (23-31); GLUCOSE 118 mg/dL (75-110); POTASSIUM 4.3 mmol/L (3.5-5.1); SODIUM 134 mmol/L (136-145); TOTAL BILIRUBIN 0.6 mg/dL (0.2-1.2); TOTAL PROTEIN 6.4 g/dL (6.2-8.1)
[2019-04-06 19:13] LABS: TROPONIN-I < 0.03 ng/mL (<0.030)
[2019-04-06 19:21] LABS: HEMATOCRIT 30.9 % (42.0-52.0); MEAN CELL VOLUME 100 fl (78-100); MEAN CORPUSCULAR HEMOGLOBIN 32 pg (27-31); MEAN CORPUSCULAR HGB CONC 32 g/dL (33-37); MEAN PLATELET VOLUME 10.8 fl (7.4-10.4); PLATELET COUNT 348 K/mm3 (130-400); RED CELL DISTRIBUTION WIDTH 20.5 % (11.5-14.5); WHITE BLOOD COUNT 16.2 K/mm3 (4.8-10.8)
[2019-04-06 19:35] LABS: BAND 2 % (0-10); HYPOCHROMIA 1+; LYMPHOCYTE 20 % (20-51); MICROCYTOSIS 1+; MONOCYTE 10 % (3-10); NEUTROPHILS 67 % (42-75); OVALOCYTES 1+
[2019-04-06 20:05] VITALS: BP 140/69
[2019-04-06 20:15] LABS: URINE APPEARANCE CLEAR; URINE BILIRUBIN NEGATIVE (NEGATIVE); URINE BLOOD NEGATIVE (NEGATIVE); URINE COLOR YELLOW; URINE GLUCOSE NEGATIVE (NEGATIVE); URINE KETONE NEGATIVE (NEGATIVE); URINE LEUKOCYTE ESTERASE NEGATIVE (NEGATIVE); URINE NITRATE NEGATIVE (NEGATIVE); URINE PROTEIN(semi-quant) NEGATIVE (NEGATIVE); URINE UROBILINOGEN NORMAL (NORMAL)
[2019-04-06 20:24] LABS: URINE MUCUS PRESENT (NOT PRESENT); URINE WBC 0-1 /hpf (0-3)
== END 2019-04-06 20:05 | disposition other institution (70) ==
LOC: ED 17:56
PROVIDERS: Nurse Practitioner Family
DX: J44.1 Chronic obstructive pulmonary disease with (acute) exacerbation (principal); R09.02 Hypoxemia; J18.9 Pneumonia, unspecified organism; I48.91 Unspecified atrial fibrillation; R53.81 Other malaise; I50.9 Heart failure, unspecified; E03.9 Hypothyroidism, unspecified; D64.9 Anemia, unspecified; G62.9 Polyneuropathy, unspecified; M51.36 Other intervertebral disc degeneration, lumbar region; Z85.51 Personal history of malignant neoplasm of bladder; Z87.438 Personal history of other diseases of male genital organs; Z90.79 Acquired absence of other genital organ(s); Z90.6 Acquired absence of other parts of urinary tract; Z98.890 Other specified postprocedural states; Z86.79 Personal history of other diseases of the circulatory system; Z79.01 Long term (current) use of anticoagulants; Z87.891 Personal history of nicotine dependence
CPT/HCPCS: J7030

== ENCOUNTER 2019-04-06 20:05 | Inpatient (IN) | payer MEDICARE, BC ==
[~2019-04-06] VITALS: Ht 180.3 cm; Wt 96.6 kg
[~2019-04-06 20:05] MED LIST changes: +FERROUS SULFAT325 M4 PO; +LISINOPRIL2.5 MG PO; +YUPELRI175 MCG/3 IH
[2019-04-06 20:34] VITALS: BP 140/69
[2019-04-06 20:40] VITALS: BP 140/69
[2019-04-06 22:18] VITALS: BP 132/60
[2019-04-06 23:02] VITALS: BP 132/60
[2019-04-07 03:00] VITALS: BP 121/68
[2019-04-07 07:06] VITALS: BP 136/62
[2019-04-07 07:11] LABS: HEMATOCRIT 33.5 % (42.0-52.0); HEMOGLOBIN 10.8 g/dL (13.5-18.0); MEAN CELL VOLUME 99 fl (78-100); MEAN CORPUSCULAR HEMOGLOBIN 32 pg (27-31); MEAN CORPUSCULAR HGB CONC 32 g/dL (33-37); MEAN PLATELET VOLUME 10.3 fl (7.4-10.4); PLATELET COUNT 311 K/mm3 (130-400); RED BLOOD COUNT 3.38 M/mm3 (4.20-5.60); RED CELL DISTRIBUTION WIDTH 20.4 % (11.5-14.5); WHITE BLOOD COUNT 7.3 K/mm3 (4.8-10.8)
[2019-04-07 07:22] LABS: CALCIUM 9.5 mg/dL (8.8-10.0); POTASSIUM 4.3 mmol/L (3.5-5.1)
[2019-04-07 07:42] LABS: LYMPHOCYTE 10 % (20-51); MONOCYTE 5 % (3-10); NEUTROPHILS 81 % (42-75); OVALOCYTES 1+
[2019-04-07 11:09] VITALS: BP 150/66
[2019-04-07 14:59] VITALS: BP 132/64
[2019-04-07 18:19] VITALS: BP 132/66
[2019-04-07 22:56] VITALS: BP 130/60
[2019-04-08 02:54] VITALS: BP 158/68
[2019-04-08 06:18] VITALS: BP 147/63
[2019-04-08 11:10] VITALS: BP 158/65
[2019-04-08 15:22] VITALS: BP 142/68
[2019-04-08 18:21] VITALS: BP 147/72
[2019-04-08 23:00] VITALS: BP 136/66
[2019-04-09 03:00] VITALS: BP 126/64
[2019-04-09 06:40] VITALS: BP 133/72
[2019-04-09] MEDS ORDERED: BIAXIN 500MG T500 MG PO (10:05)
[2019-04-09] MEDS ORDERED: Patient's Own Medica IH (10:08)
[2019-04-09] MEDS ORDERED: PREDNISONE10 MG PO (10:08)
[2019-04-09] MEDS ORDERED: PANTOPRAZOLE SO40 MG PO (10:10)
== END 2019-04-09 11:02 | disposition home health service (06) | DRG 190 ==
LOC: MED/SURG 20:05
PROVIDERS: ADMIT Nurse Practitioner Family
DX: J44.1 Chronic obstructive pulmonary disease with (acute) exacerbation (principal); J18.9 Pneumonia, unspecified organism; J44.0 Chronic obstructive pulmonary disease with (acute) lower respiratory infection; I48.91 Unspecified atrial fibrillation; R53.81 Other malaise
CPT/HCPCS: J0295; J2930; J7030; J7512

== ENCOUNTER 2019-04-17 11:24 | Emergency (ER) | payer MEDICARE, BC ==
[~2019-04-17] VITALS: Ht 182.9 cm; Wt 94.5 kg
[~2019-04-17 11:24] MED LIST changes: +BIAXIN 500MG T500 MG PO; +PANTOPRAZOLE SO40 MG PO; +Patient's Own Medica IH
[2019-04-17 12:35] LABS: HEMATOCRIT 30.8 % (42.0-52.0); HEMOGLOBIN 9.8 g/dL (13.5-18.0); MEAN CELL VOLUME 100 fl (78-100); MEAN CORPUSCULAR HEMOGLOBIN 32 pg (27-31); MEAN CORPUSCULAR HGB CONC 32 g/dL (33-37); MEAN PLATELET VOLUME 10.3 fl (7.4-10.4); PLATELET COUNT 287 K/mm3 (130-400); RED BLOOD COUNT 3.07 M/mm3 (4.20-5.60); RED CELL DISTRIBUTION WIDTH 21.2 % (11.5-14.5)
[2019-04-17 12:40] LABS: WHITE BLOOD COUNT 31.1 K/mm3 (4.8-10.8)
[2019-04-17 13:01] LABS: LYMPHOCYTE 14 % (20-51); MONOCYTE 12 % (3-10); NEUTROPHILS 84 % (42-75)
[2019-04-17 13:03] LABS: ALBUMIN 3.7 g/dL (3.4-4.8); ALT/SGPT 30 U/L (0-55); AST-SGOT 23 U/L (5-34); CALCIUM 9.5 mg/dL (8.3-10.5); CARBON DIOXIDE 28 mmol/L (23-31); GLUCOSE 135 mg/dL (75-110); POTASSIUM 3.9 mmol/L (3.5-5.1); SODIUM 133 mmol/L (136-145); TOTAL BILIRUBIN 1.2 mg/dL (0.2-1.2); TOTAL PROTEIN 6.3 g/dL (6.2-8.1)
[2019-04-17 13:05] LABS: TROPONIN-I < 0.03 ng/mL (<0.030)
[2019-04-17 13:06] LABS: URINE APPEARANCE HAZY; URINE BILIRUBIN NEGATIVE (NEGATIVE); URINE BLOOD 50 ery/uL (NEGATIVE); URINE COLOR YELLOW; URINE GLUCOSE NEGATIVE (NEGATIVE); URINE KETONE NEGATIVE (NEGATIVE); URINE LEUKOCYTE ESTERASE 1+ (NEGATIVE); URINE NITRATE POSITIVE (NEGATIVE); URINE PROTEIN(semi-quant) TRACE mg/dL (NEGATIVE); URINE UROBILINOGEN NORMAL (NORMAL)
[2019-04-17 15:00] VITALS: BP 106/52
== END 2019-04-17 15:00 | disposition other institution (70) ==
LOC: ED 11:24
PROVIDERS: Nurse Practitioner Primary Care
DX: N17.9 Acute kidney failure, unspecified (principal); E86.0 Dehydration; D72.829 Elevated white blood cell count, unspecified; N39.0 Urinary tract infection, site not specified; I48.91 Unspecified atrial fibrillation; I25.10 Atherosclerotic heart disease of native coronary artery without angina pectoris; I11.0 Hypertensive heart disease with heart failure; I50.9 Heart failure, unspecified; E03.9 Hypothyroidism, unspecified; Z90.79 Acquired absence of other genital organ(s); Z79.01 Long term (current) use of anticoagulants; Z79.82 Long term (current) use of aspirin; Z79.51 Long term (current) use of inhaled steroids
CPT/HCPCS: J7030; Q9967

== ENCOUNTER 2019-04-17 14:48 | Inpatient (IN) | payer MEDICARE, BC ==
[~2019-04-17] VITALS: Ht 180.3 cm; Wt 96.5 kg
[2019-04-17 15:20] VITALS: BP 118/56
[2019-04-17 15:31] VITALS: BP 118/56
[2019-04-17 18:22] VITALS: BP 128/69
[2019-04-17 19:00] VITALS: BP 135/65
[2019-04-17 23:30] VITALS: BP 114/63
[2019-04-18 03:20] VITALS: BP 120/62
[2019-04-18 06:12] VITALS: BP 113/63
[2019-04-18 07:12] LABS: HEMATOCRIT 27.4 % (42.0-52.0); HEMOGLOBIN 8.8 g/dL (13.5-18.0); MEAN CELL VOLUME 102 fl (78-100); MEAN CORPUSCULAR HEMOGLOBIN 33 pg (27-31); MEAN CORPUSCULAR HGB CONC 32 g/dL (33-37); PLATELET COUNT 229 K/mm3 (130-400); RED BLOOD COUNT 2.69 M/mm3 (4.20-5.60); RED CELL DISTRIBUTION WIDTH 21.4 % (11.5-14.5)
[2019-04-18 07:28] LABS: WHITE BLOOD COUNT 26.5 K/mm3 (4.8-10.8)
[2019-04-18 07:39] LABS: CALCIUM 9.2 mg/dL (8.3-10.5)
--- NOTE | 2019-04-18 07:40 | NUR ---
Patient alert and oriented. Sitting up in the chair. Reports that he is feeling better today. Denies burning with urination throughout the night. Per development technician nurse, patient had no incontinence during the night. Patient denies pain or dizziness. INT to left wrist. Telemetry leads intact. Patient Denies needs or questions at this time. Fall precautions in place.
[2019-04-18 07:47] LABS: BAND 6 % (0-10); LYMPHOCYTE 4 % (20-51); MONOCYTE 12 % (3-10); NEUTROPHILS 77 % (42-75)
[2019-04-18 07:48] LABS: HYPOCHROMIA 1+; METAMYELOCYTE 1 % (0-0); MICROCYTOSIS 1+; OVALOCYTES 1+
[2019-04-18 10:55] VITALS: BP 97/61
--- NOTE | 2019-04-18 14:14 | NUR ---
Latisha Alvarez APRN at bedside.
[2019-04-18 14:55] VITALS: BP 105/56
--- NOTE | 2019-04-18 15:40 | NUR ---
Patient alert and oriented. Resting in bed with head of bed elevated. Patient reports intermittent burning pain to pubic area up to mid abdomen. Denies need for PRN tylenol when first offered, agreeable a short time later. PRN tylenol administered. NS infusing through IV to left wrist at ordered rate. is present in the room and asks if she can bring in fiber bars for him due to constipation. COMPUTERIZED MACHINE FABRIC CUTTER reports stool smearing when wiped, denies loose stools. Abdomen is distended, soft. Bowel sounds audible x4. Denies abdominal pain or tenderness. Denies nausea or vomiting. Patient has been incontinent of urine multiple times today. Urine has a strong foul odor. Patient denies needs or questions. Fall precautions in place.
[2019-04-18 18:11] VITALS: BP 91/55
[2019-04-18 23:30] VITALS: BP 124/68
--- NOTE | 2019-04-18 23:51 | NUR ---
Patient just had a small dark colored soft formed stool, is on iron supplement and claims his stools are always dark colored, no diarrhea noted at all, unable to collect stool sample for c-diff testing at this time, patient is feeling better, ambulates without difficulty, gait steady, denies any pain, tucked back into bed, side rails up x 2, call light within reach, bed alarm reactivated, denies any further needs/complaints at this time, will continue to monitor
[2019-04-19 03:00] VITALS: BP 147/67
[2019-04-19 06:21] VITALS: BP 164/62
[2019-04-19 06:54] LABS: HEMATOCRIT 27.3 % (42.0-52.0); HEMOGLOBIN 8.7 g/dL (13.5-18.0); MEAN CELL VOLUME 102 fl (78-100); MEAN CORPUSCULAR HEMOGLOBIN 33 pg (27-31); MEAN CORPUSCULAR HGB CONC 32 g/dL (33-37); MEAN PLATELET VOLUME 11.1 fl (7.4-10.4); PLATELET COUNT 182 K/mm3 (130-400); RED BLOOD COUNT 2.67 M/mm3 (4.20-5.60); RED CELL DISTRIBUTION WIDTH 21.5 % (11.5-14.5); WHITE BLOOD COUNT 15.9 K/mm3 (4.8-10.8)
[2019-04-19 07:26] LABS: POTASSIUM 3.7 mmol/L (3.5-5.1)
[2019-04-19 07:55] LABS: BAND 5 % (0-10); LYMPHOCYTE 5 % (20-51); MONOCYTE 8 % (3-10); NEUTROPHILS 80 % (42-75); OVALOCYTES 1+; TARGET CELLS 1+
[2019-04-19 11:24] VITALS: BP 147/68
[2019-04-19 15:25] VITALS: BP 172/60
[2019-04-19 18:22] VITALS: BP 125/65
--- NOTE | 2019-04-19 19:20 | NUR ---
Report received from Lucita DOMINGUEZ. Resting in bed, talking on phone at this time. Denies wants or needs. Bed alarm on. Call light in reach.
[2019-04-19 23:03] VITALS: BP 107/55
--- NOTE | 2019-04-20 00:59 | NUR ---
Resting without signs of pain. Incontinent of urine. Up to BR with assist of DATABASE DESIGN ANALYST. Linen changed. Pericare provided. Denies wants or needs.
[2019-04-20 03:37] VITALS: BP 118/63
--- NOTE | 2019-04-20 03:37 | NUR ---
Has been resting well all night. Awaken by staff for vital signs. Incontinent of urine. Linens changed. Niecy-cares provided.
--- NOTE | 2019-04-20 06:02 | NUR ---
Dr. Jeffery calls, orders to change labs from this AM to 11:00 AM.
[2019-04-20 06:20] VITALS: BP 162/74
--- NOTE | 2019-04-20 07:21 | NUR ---
Report to Yuliya DOMINGUEZ.
[2019-04-20 11:07] VITALS: BP 145/74
[2019-04-20 11:19] LABS: HEMATOCRIT 28.7 % (42.0-52.0); HEMOGLOBIN 9.2 g/dL (13.5-18.0); MEAN CELL VOLUME 101 fl (78-100); MEAN CORPUSCULAR HEMOGLOBIN 33 pg (27-31); MEAN CORPUSCULAR HGB CONC 32 g/dL (33-37); MEAN PLATELET VOLUME 10.7 fl (7.4-10.4); PLATELET COUNT 177 K/mm3 (130-400); RED BLOOD COUNT 2.83 M/mm3 (4.20-5.60); RED CELL DISTRIBUTION WIDTH 21.3 % (11.5-14.5); WHITE BLOOD COUNT 7.8 K/mm3 (4.8-10.8)
[2019-04-20 11:38] LABS: ALBUMIN 3.2 g/dL (3.4-4.8); CALCIUM 9.2 mg/dL (8.3-10.5); POTASSIUM 3.6 mmol/L (3.5-5.1); TOTAL BILIRUBIN 0.3 mg/dL (0.2-1.2); TOTAL PROTEIN 5.8 g/dL (6.2-8.1)
[2019-04-20 12:05] LABS: BAND 2 % (0-10); HYPOCHROMIA 1+; LYMPHOCYTE 8 % (20-51); MONOCYTE 25 % (3-10); NEUTROPHILS 62 % (42-75)
[2019-04-20 12:07] LABS: OVALOCYTES 2+
--- NOTE | 2019-04-20 13:00 | NUR ---
PATIENT BEING DISCHARGED FROM ACUTE STAY TO SWING BED STAY AT THIS TIME
== END 2019-04-20 13:05 | disposition swing bed (61) | DRG 683 ==
LOC: MED/SURG 14:48
PROVIDERS: Family Medicine; ADMIT Nurse Practitioner Primary Care
DX: N17.9 Acute kidney failure, unspecified (principal); N39.0 Urinary tract infection, site not specified; E86.0 Dehydration; I95.1 Orthostatic hypotension; R53.1 Weakness; Z88.1 Allergy status to other antibiotic agents; Z88.8 Allergy status to other drugs, medicaments and biological substances; Z72.0 Tobacco use; I48.2 Chronic atrial fibrillation; Z79.01 Long term (current) use of anticoagulants; R40.2413 Glasgow coma scale score 13-15, at hospital admission; D64.9 Anemia, unspecified; R53.81 Other malaise; B96.89 Other specified bacterial agents as the cause of diseases classified elsewhere; Z16.39 Resistance to other specified antimicrobial drug; J44.9 Chronic obstructive pulmonary disease, unspecified; E03.9 Hypothyroidism, unspecified
CPT/HCPCS: J1940; J2543; J3490; J7030; J7060

== ENCOUNTER 2019-04-20 12:48 | Inpatient (IN) | payer MEDICARE, BC ==
[~2019-04-20] VITALS: Ht 180.3 cm; Wt 96.5 kg
[2019-04-20 15:18] VITALS: BP 145/74
[2019-04-20 18:07] VITALS: BP 147/70
[2019-04-21 06:22] VITALS: BP 144/60
[2019-04-21 18:27] VITALS: BP 155/75
[2019-04-22 06:12] VITALS: BP 147/68
[2019-04-22 18:35] VITALS: BP 107/62
[2019-04-23 06:31] VITALS: BP 136/70
[2019-04-23 18:16] VITALS: BP 168/82
[2019-04-24 06:19] VITALS: BP 127/67
[2019-04-24 08:14] LABS: HEMATOCRIT 28.4 % (42.0-52.0); MEAN CELL VOLUME 100 fl (78-100); MEAN CORPUSCULAR HEMOGLOBIN 32 pg (27-31); MEAN CORPUSCULAR HGB CONC 32 g/dL (33-37); MEAN PLATELET VOLUME 10.4 fl (7.4-10.4); PLATELET COUNT 291 K/mm3 (130-400); RED BLOOD COUNT 2.84 M/mm3 (4.20-5.60); WHITE BLOOD COUNT 11.1 K/mm3 (4.8-10.8)
[2019-04-24 08:48] LABS: CALCIUM 9.5 mg/dL (8.3-10.5); POTASSIUM 4.6 mmol/L (3.5-5.1)
[2019-04-24 10:59] LABS: URINE APPEARANCE HAZY; URINE BILIRUBIN NEGATIVE (NEGATIVE); URINE COLOR DK YELLOW; URINE GLUCOSE NEGATIVE (NEGATIVE); URINE KETONE NEGATIVE (NEGATIVE); URINE NITRATE POSITIVE (NEGATIVE); URINE PROTEIN(semi-quant) NEGATIVE (NEGATIVE); URINE UROBILINOGEN NORMAL (NORMAL)
[2019-04-24 11:00] LABS: URINE BLOOD TRACE (NEGATIVE); URINE LEUKOCYTE ESTERASE TRACE (NEGATIVE)
[2019-04-24 11:01] LABS: BAND 2 % (0-10); LYMPHOCYTE 21 % (20-51); NEUTROPHILS 61 % (42-75)
[2019-04-24 11:02] LABS: HYPOCHROMIA 1+; MONOCYTE 15 % (3-10); OVALOCYTES 1+
[2019-04-24 18:09] VITALS: BP 106/50
[2019-04-25 06:04] VITALS: BP 139/66
[2019-04-25 17:59] VITALS: BP 144/83
[2019-04-26 06:17] VITALS: BP 138/61
[2019-04-26] MEDS ORDERED: SEPTRA DS 8001 TAB PO (07:06)
[2019-04-26] MEDS ORDERED: PROBIOTICA100 MILLIO PO (07:06)
[2019-04-26] MEDS ORDERED: EZETIMIBE10 M1 PO (08:06)
[2019-04-26] MEDS ORDERED: MYRBETRIQ25 MG PO (08:07)
[2019-04-26] MEDS ORDERED: FLOMAX0.4 MG PO (08:07)
== END 2019-04-26 08:55 | disposition home health service (06) | DRG 948 ==
LOC: MED/SURG 12:48
PROVIDERS: ADMIT Family Medicine
DX: R53.81 Other malaise (principal); N12 Tubulo-interstitial nephritis, not specified as acute or chronic; J44.9 Chronic obstructive pulmonary disease, unspecified; D64.9 Anemia, unspecified; E03.9 Hypothyroidism, unspecified; I48.91 Unspecified atrial fibrillation; Z79.01 Long term (current) use of anticoagulants; I50.9 Heart failure, unspecified; Z88.1 Allergy status to other antibiotic agents; Z88.8 Allergy status to other drugs, medicaments and biological substances; R39.15 Urgency of urination
CPT/HCPCS: J2916

== ENCOUNTER → 2019-05-01 | Outpatient (CLI) | payer MEDICARE, BC ==
[2019-04-26 06:17] VITALS: BP 138/61
[~2019-05-01] MED LIST changes: +EZETIMIBE10 M1 PO; +MYRBETRIQ25 MG PO; +PROBIOTICA100 MILLIO PO; +SEPTRA DS 8001 TAB PO
[2019-05-01 07:34] LABS: HEMATOCRIT 26.9 % (42.0-52.0); HEMOGLOBIN 8.6 g/dL (13.5-18.0); MEAN PLATELET VOLUME 9.5 fl (7.4-10.4); RED BLOOD COUNT 2.72 M/mm3 (4.20-5.60); RED CELL DISTRIBUTION WIDTH 20.9 % (11.5-14.5); WHITE BLOOD COUNT 8.9 K/mm3 (4.8-10.8)
[2019-05-01 08:02] LABS: CALCIUM 9.9 mg/dL (8.3-10.5); POTASSIUM 4.5 mmol/L (3.5-5.1)
[2019-05-01 10:09] LABS: URINE APPEARANCE CLEAR; URINE COLOR YELLOW; URINE GLUCOSE NEGATIVE (NEGATIVE); URINE KETONE NEGATIVE (NEGATIVE); URINE PROTEIN(semi-quant) NEGATIVE (NEGATIVE)
[2019-05-01 10:10] LABS: URINE BILIRUBIN NEGATIVE (NEGATIVE); URINE BLOOD NEGATIVE (NEGATIVE); URINE LEUKOCYTE ESTERASE NEGATIVE (NEGATIVE); URINE NITRATE NEGATIVE (NEGATIVE); URINE UROBILINOGEN NORMAL (NORMAL)
[2019-05-01 10:11] LABS: URINE MUCUS PRESENT (NOT PRESENT)
== END ==
LOC: LAB 07:23
PROVIDERS: Family Medicine
DX: Z13.6 Encounter for screening for cardiovascular disorders (principal); R73.9 Hyperglycemia, unspecified; D64.9 Anemia, unspecified; I25.10 Atherosclerotic heart disease of native coronary artery without angina pectoris; Z87.440 Personal history of urinary (tract) infections

== ENCOUNTER 2019-05-21 16:47 | Observation (INO) | payer MEDICARE, BC ==
[~2019-05-21] VITALS: Ht 182.9 cm; Wt 94.3 kg
[~2019-05-21 16:47] MED LIST changes: +ACIDOPHILUS1 EAC1 PO; +PANTOPRAZOLE SO20 M1 PO
[2019-05-21 17:33] VITALS: BP 128/63
[2019-05-21 18:14] VITALS: BP 98/60
[2019-05-21 23:38] VITALS: BP 126/69
[2019-05-22 03:00] VITALS: BP 149/72
[2019-05-22 06:15] VITALS: BP 131/70
[2019-05-22 11:09] VITALS: BP 102/39
[2019-05-22 15:09] VITALS: BP 120/65
[2019-05-22 18:49] VITALS: BP 113/53
[2019-05-22 22:29] VITALS: BP 125/70
[2019-05-23 03:05] VITALS: BP 110/72
[2019-05-23 06:03] VITALS: BP 130/72
[2019-05-23 07:12] LABS: HEMATOCRIT 24.8 % (42.0-52.0); MEAN CELL VOLUME 102 fl (78-100); MEAN CORPUSCULAR HEMOGLOBIN 32 pg (27-31); MEAN CORPUSCULAR HGB CONC 31 g/dL (33-37); PLATELET COUNT 260 K/mm3 (130-400); RED BLOOD COUNT 2.43 M/mm3 (4.20-5.60); RED CELL DISTRIBUTION WIDTH 22.3 % (11.5-14.5); WHITE BLOOD COUNT 7.3 K/mm3 (4.8-10.8)
[2019-05-23 07:18] LABS: POTASSIUM 3.7 mmol/L (3.5-5.1)
[2019-05-23 07:19] LABS: CALCIUM 8.9 mg/dL (8.3-10.5)
[2019-05-23 07:26] LABS: HEMOGLOBIN 7.7 g/dL (13.5-18.0)
[2019-05-23 07:56] LABS: BAND 1 % (0-10); LYMPHOCYTE 32 % (20-51); MICROCYTOSIS 1+; MONOCYTE 14 % (3-10); NEUTROPHILS 50 % (42-75); OVALOCYTES 1+; TEAR DROP CELLS 1+
[2019-05-23 11:18] VITALS: BP 103/66
== END 2019-05-23 13:07 | disposition swing bed (61) ==
LOC: MED/SURG 16:47
PROVIDERS: Nurse Practitioner Primary Care; ADMIT Family Medicine
DX: N39.0 Urinary tract infection, site not specified (principal); R53.81 Other malaise; E03.9 Hypothyroidism, unspecified; Z87.891 Personal history of nicotine dependence; J44.9 Chronic obstructive pulmonary disease, unspecified; I48.91 Unspecified atrial fibrillation; Z79.01 Long term (current) use of anticoagulants; Z79.899 Other long term (current) drug therapy; I11.0 Hypertensive heart disease with heart failure; I50.9 Heart failure, unspecified; I25.10 Atherosclerotic heart disease of native coronary artery without angina pectoris; Z90.89 Acquired absence of other organs; Z79.82 Long term (current) use of aspirin; Z90.79 Acquired absence of other genital organ(s)
CPT/HCPCS: G0378; G0379; J0744; J7040

== ENCOUNTER 2019-05-23 12:36 | Inpatient (IN) | payer MEDICARE, BC ==
[~2019-05-23] VITALS: Ht 180.3 cm; Wt 94.3 kg
[2019-05-23 14:29] VITALS: BP 119/55
[2019-05-23 15:51] VITALS: BP 119/55
[2019-05-23 18:51] VITALS: BP 112/70
[2019-05-24] VITALS (20 sets, daily range): BP systolic 92–157; BP diastolic 57–84
[2019-05-25 06:12] VITALS: BP 161/66
[2019-05-25 07:26] LABS: HEMOGLOBIN 9.9 g/dL (13.5-18.0); MEAN CELL VOLUME 99 fl (78-100); MEAN CORPUSCULAR HEMOGLOBIN 32 pg (27-31); MEAN CORPUSCULAR HGB CONC 32 g/dL (33-37); MEAN PLATELET VOLUME 9.3 fl (7.4-10.4); PLATELET COUNT 308 K/mm3 (130-400); RED BLOOD COUNT 3.14 M/mm3 (4.20-5.60); RED CELL DISTRIBUTION WIDTH 21.5 % (11.5-14.5)
[2019-05-25 08:28] LABS: BAND 2 % (0-10); LYMPHOCYTE 31 % (20-51); NEUTROPHILS 44 % (42-75)
[2019-05-25 08:29] LABS: METAMYELOCYTE 1 % (0-0); MONOCYTE 18 % (3-10); OVALOCYTES 1+
[2019-05-25 18:19] VITALS: BP 148/17
[2019-05-26 06:14] VITALS: BP 124/45
[2019-05-26 10:48] LABS: URINE APPEARANCE CLEAR; URINE BILIRUBIN NEGATIVE (NEGATIVE); URINE BLOOD NEGATIVE (NEGATIVE); URINE COLOR YELLOW; URINE GLUCOSE NEGATIVE (NEGATIVE); URINE KETONE NEGATIVE (NEGATIVE); URINE LEUKOCYTE ESTERASE TRACE (NEGATIVE); URINE NITRATE NEGATIVE (NEGATIVE); URINE PROTEIN(semi-quant) NEGATIVE (NEGATIVE); URINE UROBILINOGEN NORMAL (NORMAL)
[2019-05-26 18:53] VITALS: BP 121/66
[2019-05-27 06:00] VITALS: BP 146/64
[2019-05-27 18:38] VITALS: BP 131/73
[2019-05-28 06:18] VITALS: BP 129/65
[2019-05-28 18:17] VITALS: BP 171/52
[2019-05-29 06:21] VITALS: BP 146/57
[2019-05-29] MEDS ORDERED: CIPRO500 M1 PO (07:21)
== END 2019-05-29 13:30 | disposition home health service (06) | DRG 690 ==
LOC: MED/SURG 12:36
PROVIDERS: Family Medicine; Physician Assistant; ADMIT Nurse Practitioner Primary Care
DX: N39.0 Urinary tract infection, site not specified (principal); R53.81 Other malaise; I48.2 Chronic atrial fibrillation; I10 Essential (primary) hypertension; I25.10 Atherosclerotic heart disease of native coronary artery without angina pectoris; Z79.01 Long term (current) use of anticoagulants; E03.9 Hypothyroidism, unspecified; D64.9 Anemia, unspecified; N13.9 Obstructive and reflux uropathy, unspecified; J44.9 Chronic obstructive pulmonary disease, unspecified; Z66 Do not resuscitate
CPT/HCPCS: P9016

== ENCOUNTER → 2019-06-05 | Outpatient (CLI) | payer MEDICARE, BC ==
[2019-05-29 06:21] VITALS: BP 146/57
[~2019-06-05] MED LIST changes: +CIPRO500 M1 PO
== END ==
LOC: LAB 12:56
DX: D64.9 Anemia, unspecified (principal); K92.1 Melena

== ENCOUNTER → 2019-06-08 | Outpatient (CLI) | payer MEDICARE, BC ==
[2019-05-29 06:21] VITALS: BP 146/57
[2019-06-08 11:04] LABS: MEAN PLATELET VOLUME 9.4 fl (7.4-10.4); RED BLOOD COUNT 3.19 M/mm3 (4.20-5.60); RED CELL DISTRIBUTION WIDTH 20.1 % (11.5-14.5); WHITE BLOOD COUNT 6.6 K/mm3 (4.8-10.8)
== END ==
LOC: LAB 10:51
PROVIDERS: Family Medicine
DX: I44.0 Atrioventricular block, first degree (principal); I50.22 Chronic systolic (congestive) heart failure; D53.9 Nutritional anemia, unspecified

== ENCOUNTER → 2019-07-14 | Outpatient (CLI) | payer MEDICARE, BC ==
[2019-07-14 12:40] LABS: URINE APPEARANCE CLEAR; URINE COLOR YELLOW
[2019-07-14 12:41] LABS: URINE BILIRUBIN NEGATIVE (NEGATIVE); URINE BLOOD NEGATIVE (NEGATIVE); URINE GLUCOSE NEGATIVE (NEGATIVE); URINE KETONE NEGATIVE (NEGATIVE); URINE LEUKOCYTE ESTERASE TRACE (NEGATIVE); URINE NITRATE NEGATIVE (NEGATIVE); URINE PROTEIN(semi-quant) NEGATIVE (NEGATIVE); URINE UROBILINOGEN NORMAL (NORMAL); URINE WBC 0-1 /hpf (0-3)
== END ==
LOC: LAB 11:25
PROVIDERS: Family Medicine
DX: R32 Unspecified urinary incontinence (principal)

== ENCOUNTER → 2020-01-04 | Outpatient (CLI) | payer MEDICARE, BC ==
[2020-01-04 15:13] LABS: POTASSIUM 4.2 mmol/L (3.5-5.1)
== END ==
LOC: LAB 14:40
PROVIDERS: Family Medicine
DX: I50.22 Chronic systolic (congestive) heart failure (principal)

== ENCOUNTER → 2020-06-21 | Outpatient (CLI) | payer MEDICARE, BC | LOC: LAB 09:35 | DX: E03.9 Hypothyroidism, unspecified (principal) ==

== ENCOUNTER → 2020-07-03 | Outpatient (CLI) | payer MEDICARE, BC ==
[2020-07-03 07:29] LABS: ALBUMIN 4.2 g/dL (3.4-4.8); POTASSIUM 4.5 mmol/L (3.5-5.1)
[2020-07-03 07:32] LABS: TOTAL PROTEIN 6.9 g/dL (6.2-8.1)
[2020-07-03 07:34] LABS: TOTAL BILIRUBIN 0.9 mg/dL (0.2-1.2)
== END ==
LOC: LAB 07:03
PROVIDERS: Family Medicine
DX: I50.22 Chronic systolic (congestive) heart failure (principal)

== ENCOUNTER → 2020-07-26 | Outpatient (CLI) | payer MEDICARE, BC | LOC: VAS 16:27 → RAD 16:30 → VAS 16:30 | DX: I25.119 Atherosclerotic heart disease of native coronary artery with unspecified angina pectoris (principal); I35.1 Nonrheumatic aortic (valve) insufficiency ==

== ENCOUNTER 2021-01-03 12:19 | Emergency (ER) | payer MEDICARE, BC ==
[~2021-01-03] VITALS: Wt 99.9 kg
[2021-01-03 13:56] LABS: HEMATOCRIT 26.4 % (42.0-52.0); MEAN CELL VOLUME 99 fl (78-100); MEAN CORPUSCULAR HEMOGLOBIN 30 pg (27-31); MEAN CORPUSCULAR HGB CONC 30 g/dL (33-37); PLATELET COUNT 327 K/mm3 (130-400); RED BLOOD COUNT 2.67 M/mm3 (4.20-5.60); WHITE BLOOD COUNT 10.4 K/mm3 (4.8-10.8)
[2021-01-03 14:01] LABS: ALBUMIN 4.3 g/dL (3.4-4.8)
[2021-01-03 14:02] LABS: POTASSIUM 5.1 mmol/L (3.5-5.1)
[2021-01-03 14:03] LABS: CALCIUM 9.6 mg/dL (8.3-10.5)
[2021-01-03 14:04] LABS: TOTAL PROTEIN 7.2 g/dL (6.2-8.1)
[2021-01-03 14:06] LABS: TOTAL BILIRUBIN 0.9 mg/dL (0.2-1.2)
[2021-01-03] MEDS ORDERED: ASPIRIN E.C. 8181 MG PO (14:07)
[2021-01-03 14:09] LABS: BAND 4 % (0-10); LYMPHOCYTE 12 % (20-51); MONOCYTE 17 % (3-10); NEUTROPHILS 66 % (42-75)
[2021-01-03 14:10] LABS: OVALOCYTES 1+
[2021-01-03] MEDS ORDERED: DOCUSATE NA250 MG PO (14:12)
[2021-01-03] MEDS ORDERED: FUROSEMIDE40 MG PO (14:32)
[2021-01-03] MEDS ORDERED: LORAZEPAM0.5 M1 PO (14:42)
[2021-01-03] MEDS ORDERED: MIRALAX17 GM PO (14:46)
[2021-01-03 15:52] VITALS: BP 149/78
== END 2021-01-03 16:20 | disposition short-term general hospital (02) ==
LOC: ED 12:19
PROVIDERS: Nurse Practitioner Primary Care
DX: K56.609 Unspecified intestinal obstruction, unspecified as to partial versus complete obstruction (principal); I11.0 Hypertensive heart disease with heart failure; I50.9 Heart failure, unspecified; I25.10 Atherosclerotic heart disease of native coronary artery without angina pectoris; I48.91 Unspecified atrial fibrillation; E03.9 Hypothyroidism, unspecified; J44.9 Chronic obstructive pulmonary disease, unspecified; Z98.61 Coronary angioplasty status; Z88.1 Allergy status to other antibiotic agents; Z88.7 Allergy status to serum and vaccine; Z88.8 Allergy status to other drugs, medicaments and biological substances; Z79.51 Long term (current) use of inhaled steroids; Z79.890 Hormone replacement therapy; Z79.82 Long term (current) use of aspirin
CPT/HCPCS: J2270; J2405; Q9967

== ENCOUNTER 2021-01-14 09:36 | Inpatient (IN) | payer MEDICARE, BC ==
[~2021-01-14 09:36] MED LIST changes: +ASPIRIN E.C. 8181 MG PO; +DOCUSATE NA250 MG PO; +LORAZEPAM0.5 M1 PO; +MIRALAX17 GM PO
[2021-01-14] MEDS ORDERED: CORDARONE200 MG/TAB PO (12:49)
[2021-01-14] MEDS ORDERED: LIPITOR 40MG TA40 MG PO (12:51)
[2021-01-14] MEDS ORDERED: COZAAR25 M1 PO (12:52)
[2021-01-14] MEDS ORDERED: ALDACTONE25 M1 PO (12:53)
[2021-01-14] MEDS ORDERED: ACIDOPHILUS1 EAC2 PO (12:56)
[2021-01-14] MEDS ORDERED: DULCOLAX STOOL100 M1 PO (12:58)
[2021-01-14] MEDS ORDERED: PROTONIX20 M1 PO (13:01)
[2021-01-14] MEDS ORDERED: VESICARE5 MG PO (13:01)
[2021-01-14] MEDS ORDERED: FLOMAX0.4 MG PO (13:05)
[2021-01-14] MEDS ORDERED: TYLENOL EXTRA500 M2 PO (13:27)
[2021-01-14 18:07] VITALS: BP 142/57
[2021-01-14 23:56] LABS: URINE APPEARANCE CLEAR; URINE COLOR YELLOW
[2021-01-14 23:57] LABS: PH-URINE 6.5 (5.0 - 8.0); URINE BILIRUBIN NEGATIVE (NEGATIVE); URINE BLOOD 50 ery/uL (NEGATIVE); URINE GLUCOSE NEGATIVE (NEGATIVE); URINE KETONE NEGATIVE (NEGATIVE); URINE LEUKOCYTE ESTERASE NEGATIVE (NEGATIVE); URINE NITRATE NEGATIVE (NEGATIVE); URINE PROTEIN(semi-quant) TRACE mg/dL (NEGATIVE); URINE UROBILINOGEN NORMAL (NORMAL); URINE WBC 0-1 /hpf (0-3)
[2021-01-15 06:08] VITALS: BP 112/69
[2021-01-15 08:50] LABS: CALCIUM 9.6 mg/dL (8.3-10.5)
[2021-01-15 08:51] LABS: TOTAL PROTEIN 6.7 g/dL (6.2-8.1)
[2021-01-15 10:01] LABS: HEMATOCRIT 27.9 % (42.0-52.0); HEMOGLOBIN 8.7 g/dL (13.5-18.0); MEAN CELL VOLUME 99 fl (78-100); MEAN CORPUSCULAR HEMOGLOBIN 31 pg (27-31); MEAN CORPUSCULAR HGB CONC 31 g/dL (33-37); MEAN PLATELET VOLUME 10.4 fl (7.4-10.4); PLATELET COUNT 282 K/mm3 (130-400); RED BLOOD COUNT 2.82 M/mm3 (4.20-5.60); WHITE BLOOD COUNT 5.6 K/mm3 (4.8-10.8)
[2021-01-15 10:02] LABS: HYPOCHROMIA 1+; LYMPHOCYTE 32 % (20-51); MICROCYTOSIS 1+; MONOCYTE 20 % (3-10); NEUTROPHILS 43 % (42-75)
[2021-01-15 10:03] LABS: TARGET CELLS 1+
[2021-01-15 12:56] LABS: PROTHROMBIN TIME 11.2 SECONDS (9.0-12.0)
[2021-01-15 17:15] VITALS: BP 122/55
[2021-01-16 06:05] VITALS: BP 125/63
[2021-01-16 17:11] VITALS: BP 98/59
[2021-01-17 06:05] VITALS: BP 133/72
[2021-01-17 14:39] LABS: ALBUMIN 3.8 g/dL (3.4-4.8); HEMATOCRIT 26.8 % (42.0-52.0); MEAN CELL VOLUME 99 fl (78-100); MEAN CORPUSCULAR HEMOGLOBIN 29 pg (27-31); MEAN CORPUSCULAR HGB CONC 30 g/dL (33-37); MEAN PLATELET VOLUME 10.2 fl (7.4-10.4); PLATELET COUNT 294 K/mm3 (130-400); RED BLOOD COUNT 2.72 M/mm3 (4.20-5.60); RED CELL DISTRIBUTION WIDTH 24.2 % (11.5-14.5); WHITE BLOOD COUNT 6.9 K/mm3 (4.8-10.8)
[2021-01-17 14:40] LABS: POTASSIUM 4.4 mmol/L (3.5-5.1)
[2021-01-17 14:41] LABS: CALCIUM 9.5 mg/dL (8.3-10.5)
[2021-01-17 14:42] LABS: TOTAL PROTEIN 6.4 g/dL (6.2-8.1)
[2021-01-17 14:44] LABS: TOTAL BILIRUBIN 0.7 mg/dL (0.2-1.2)
[2021-01-17 15:26] LABS: LYMPHOCYTE 32 % (20-51); MONOCYTE 30 % (3-10); NEUTROPHILS 38 % (42-75); TEAR DROP CELLS 1+
[2021-01-17 17:12] VITALS: BP 160/65
[2021-01-18 06:29] VITALS: BP 133/51
[2021-01-18 17:11] VITALS: BP 109/64
[2021-01-18 19:19] LABS: URINE APPEARANCE CLEAR; URINE BILIRUBIN NEGATIVE (NEGATIVE); URINE BLOOD 50 ery/uL (NEGATIVE); URINE COLOR YELLOW; URINE GLUCOSE NEGATIVE (NEGATIVE); URINE KETONE NEGATIVE (NEGATIVE); URINE LEUKOCYTE ESTERASE NEGATIVE (NEGATIVE); URINE NITRATE NEGATIVE (NEGATIVE); URINE PROTEIN(semi-quant) NEGATIVE (NEGATIVE); URINE UROBILINOGEN NORMAL (NORMAL); URINE WBC 0-1 /hpf (0-3)
[2021-01-19 06:07] VITALS: BP 129/61
[2021-01-19 17:26] VITALS: BP 115/55
[2021-01-20 06:09] VITALS: BP 112/57
[2021-01-20 17:58] VITALS: BP 123/48
[2021-01-21 05:53] VITALS: BP 139/66
[2021-01-21 14:38] VITALS: BP 110/44
[2021-01-22 05:49] VITALS: BP 104/45
[2021-01-22] MEDS ORDERED: ATIVAN0.5 MG PO ×2 (09:46)
[2021-01-23] MEDS ORDERED: LIPITOR 40MG TA40 MG PO (08:36)
[2021-01-23] MEDS ORDERED: PROTONIX20 M1 PO (08:36)
[2021-04-26] MEDS ORDERED: COZAAR25 M1 PO (13:47)
[2021-04-26] MEDS ORDERED: METAMUCIL0.4 GM PO (13:47)
== END 2021-01-22 10:12 | disposition home health service (06) | DRG 948 ==
LOC: MED/SURG 09:36
PROVIDERS: Nurse Practitioner; Physician Assistant; ADMIT Nurse Practitioner Family
DX: R53.81 Other malaise (principal); I48.91 Unspecified atrial fibrillation; I11.0 Hypertensive heart disease with heart failure; I50.9 Heart failure, unspecified; J44.9 Chronic obstructive pulmonary disease, unspecified; I25.10 Atherosclerotic heart disease of native coronary artery without angina pectoris; E03.9 Hypothyroidism, unspecified; D64.9 Anemia, unspecified; R32 Unspecified urinary incontinence; R41.0 Disorientation, unspecified; R79.89 Other specified abnormal findings of blood chemistry; Z79.01 Long term (current) use of anticoagulants; Z85.51 Personal history of malignant neoplasm of bladder; Z79.82 Long term (current) use of aspirin; Z87.891 Personal history of nicotine dependence; Z88.8 Allergy status to other drugs, medicaments and biological substances
CPT/HCPCS: J1650

== ENCOUNTER 2021-01-26 10:50 | Emergency (ER) | payer MEDICARE, BC ==
[~2021-01-26 10:50] MED LIST changes: +ACIDOPHILUS1 EAC2 PO; +ALDACTONE25 M1 PO; +ATIVAN0.5 MG PO; +CORDARONE200 MG/TAB PO; +COZAAR25 M1 PO; +DULCOLAX STOOL100 M1 PO; +LIPITOR 40MG TA40 MG PO; +PROTONIX20 M1 PO; +TYLENOL EXTRA500 M2 PO; +VESICARE5 MG PO
[2021-01-26 15:41] VITALS: BP 129/50
[2021-04-26] MEDS ORDERED: METAMUCIL0.4 GM PO (13:47)
[2021-04-26] MEDS ORDERED: COZAAR25 M1 PO (13:47)
== END 2021-01-26 15:45 | disposition home or self-care (01) ==
LOC: ED 10:50
DX: K59.00 Constipation, unspecified (principal); I48.91 Unspecified atrial fibrillation; I50.9 Heart failure, unspecified; I25.2 Old myocardial infarction; J44.9 Chronic obstructive pulmonary disease, unspecified; Z79.82 Long term (current) use of aspirin

== ENCOUNTER → 2021-01-30 | Outpatient (CLI) | payer MEDICARE, BC ==
[2021-01-26 15:41] VITALS: BP 129/50
[~2021-01-30] MED LIST changes: +METAMUCIL0.4 GM PO; +MUCINEX 60600 MG/TA1 PO; +NATURAL IRON65 MG PO; +POTASSIUM CHLO20 ME4 PO; +ZOFRAN ODT4 MG PO
[2021-01-30 11:48] LABS: HEMATOCRIT 24.2 % (42.0-52.0); MEAN PLATELET VOLUME 10.7 fl (7.4-10.4); RED BLOOD COUNT 2.45 M/mm3 (4.20-5.60); RED CELL DISTRIBUTION WIDTH 24.6 % (11.5-14.5); WHITE BLOOD COUNT 5.9 K/mm3 (4.8-10.8)
[2021-01-30 11:58] LABS: POTASSIUM 4.7 mmol/L (3.5-5.1)
[2021-01-30 11:59] LABS: CALCIUM 9.5 mg/dL (8.3-10.5); HEMOGLOBIN 7.3 g/dL (13.5-18.0)
== END ==
LOC: LAB 11:22
PROVIDERS: Family Medicine
DX: I50.22 Chronic systolic (congestive) heart failure (principal)

== ENCOUNTER → 2021-02-01 | Outpatient (CLI) | payer MEDICARE, BC ==
[2021-01-26 15:41] VITALS: BP 129/50
[2021-02-01 08:50] LABS: HEMATOCRIT 25.3 % (42.0-52.0)
[2021-02-01 09:33] LABS: HEMOGLOBIN 7.6 g/dL (13.5-18.0)
[2021-02-01 19:27] LABS: FOLATE (FOLIC ACID) >20.0 ng/mL (7.0-31.4)
[2021-02-01 23:32] LABS: HAPTOGLOBIN 60 mg/dL (40-268)
== END ==
LOC: LAB 08:22 → RAD 08:22
PROVIDERS: Family Medicine
DX: D64.9 Anemia, unspecified (principal)

== ENCOUNTER → 2021-02-03 | Outpatient (CLI) | payer MEDICARE, BC ==
[2021-02-03] VITALS (8 sets, daily range): BP systolic 119–159; BP diastolic 54–82
== END ==
LOC: AMSURD 02:21
DX: D64.9 Anemia, unspecified (principal)

== ENCOUNTER → 2021-02-04 | Outpatient (CLI) | payer MEDICARE, BC ==
[2021-02-03 14:11] VITALS: BP 143/82
[2021-02-04 11:37] LABS: HEMATOCRIT 28.8 % (42.0-52.0); HEMOGLOBIN 8.8 g/dL (13.5-18.0)
== END ==
LOC: LAB 11:11
PROVIDERS: Family Medicine
DX: D64.9 Anemia, unspecified (principal)

== ENCOUNTER → 2021-02-12 | Outpatient (CLI) | payer MEDICARE, BC ==
[2021-02-03 14:11] VITALS: BP 143/82
== END ==
LOC: LAB 10:28
DX: D64.9 Anemia, unspecified (principal)

== ENCOUNTER → 2021-02-20 | Outpatient (CLI) | payer MEDICARE, BC ==
[2021-02-03 14:11] VITALS: BP 143/82
[2021-02-20 11:17] LABS: HEMOGLOBIN 8.7 g/dL (13.5-18.0); MEAN CELL VOLUME 96 fl (78-100); MEAN CORPUSCULAR HEMOGLOBIN 29 pg (27-31); MEAN CORPUSCULAR HGB CONC 30 g/dL (33-37); MEAN PLATELET VOLUME 11.1 fl (7.4-10.4); PLATELET COUNT 195 K/mm3 (130-400); RED BLOOD COUNT 3.01 M/mm3 (4.20-5.60); RED CELL DISTRIBUTION WIDTH 22.5 % (11.5-14.5); WHITE BLOOD COUNT 5.6 K/mm3 (4.8-10.8)
[2021-02-20 11:25] LABS: POTASSIUM 4.5 mmol/L (3.5-5.1)
[2021-02-20 11:26] LABS: CALCIUM 9.3 mg/dL (8.3-10.5)
[2021-02-20 12:14] LABS: LYMPHOCYTE 26 % (20-51); MONOCYTE 18 % (3-10); NEUTROPHILS 54 % (42-75); OVALOCYTES 1+
== END ==
LOC: LAB 11:00
PROVIDERS: Family Medicine
DX: D64.9 Anemia, unspecified (principal); I50.22 Chronic systolic (congestive) heart failure

== ENCOUNTER → 2021-03-27 | Outpatient (CLI) | payer MEDICARE, BC ==
[2021-02-03 14:11] VITALS: BP 143/82
[2021-03-27 14:47] LABS: HEMATOCRIT 23.6 % (42.0-52.0); HEMOGLOBIN 7.4 g/dL (13.5-18.0); MEAN PLATELET VOLUME 10.1 fl (7.4-10.4); RED BLOOD COUNT 2.48 M/mm3 (4.20-5.60); WHITE BLOOD COUNT 6.4 K/mm3 (4.8-10.8)
[2021-03-27 14:57] LABS: POTASSIUM 4.6 mmol/L (3.5-5.1)
[2021-03-27 14:58] LABS: CALCIUM 9.4 mg/dL (8.3-10.5)
== END ==
LOC: LAB 13:38
PROVIDERS: Family Medicine
DX: I50.22 Chronic systolic (congestive) heart failure (principal); D64.9 Anemia, unspecified; E03.9 Hypothyroidism, unspecified; E64.9 Sequelae of unspecified nutritional deficiency

== ENCOUNTER → 2021-04-10 | Outpatient (CLI) | payer MEDICARE, BC ==
[2021-02-03 14:11] VITALS: BP 143/82
[2021-04-10 12:41] LABS: POTASSIUM 5.1 mmol/L (3.5-5.1)
[2021-04-10 12:43] LABS: CALCIUM 9.7 mg/dL (8.3-10.5)
[2021-04-10 12:44] LABS: HEMATOCRIT 23.8 % (42.0-52.0); HEMOGLOBIN 7.5 g/dL (13.5-18.0); MEAN PLATELET VOLUME 11.2 fl (7.4-10.4); RED BLOOD COUNT 2.47 M/mm3 (4.20-5.60); RED CELL DISTRIBUTION WIDTH 24.6 % (11.5-14.5); WHITE BLOOD COUNT 6.2 K/mm3 (4.8-10.8)
== END ==
LOC: LAB 12:12
PROVIDERS: Family Medicine
DX: I50.22 Chronic systolic (congestive) heart failure (principal); D64.9 Anemia, unspecified; I25.10 Atherosclerotic heart disease of native coronary artery without angina pectoris

== ENCOUNTER → 2021-04-26 | Outpatient (CLI) | payer MEDICARE, BC ==
[2021-04-26] VITALS (11 sets, daily range): BP systolic 103–153; BP diastolic 44–75
[2021-04-26 07:50] LABS: HEMATOCRIT 22.6 % (42.0-52.0); HEMOGLOBIN 7.2 g/dL (13.5-18.0)
== END ==
LOC: AMSURD 07:26 → LAB 07:26
PROVIDERS: Family Medicine
DX: D53.9 Nutritional anemia, unspecified (principal); I50.22 Chronic systolic (congestive) heart failure
CPT/HCPCS: J1940; P9016

== ENCOUNTER → 2021-04-27 | Outpatient (CLI) | payer MEDICARE, BC ==
[2021-04-26 20:31] VITALS: BP 148/57
[2021-04-27 09:20] LABS: HEMATOCRIT 27.4 % (42.0-52.0); HEMOGLOBIN 8.5 g/dL (13.5-18.0)
== END ==
LOC: LAB 09:01
PROVIDERS: Family Medicine
DX: D64.9 Anemia, unspecified (principal)

== ENCOUNTER → 2021-05-27 | Outpatient (CLI) | payer MEDICARE, BC ==
[2021-05-27 13:33] LABS: HEMATOCRIT 23.3 % (42.0-52.0); HEMOGLOBIN 7.2 g/dL (13.5-18.0)
== END ==
LOC: LAB 13:16
PROVIDERS: Internal Medicine
DX: D64.9 Anemia, unspecified (principal)

== ENCOUNTER → 2021-05-28 | Outpatient (CLI) | payer MEDICARE, BC ==
[2021-05-28] VITALS (14 sets, daily range): BP systolic 105–122; BP diastolic 45–87
== END ==
LOC: AMSURD 09:48
DX: D64.9 Anemia, unspecified (principal)
CPT/HCPCS: J7050; P9016

== ENCOUNTER → 2021-06-28 | Outpatient (CLI) | payer MEDICARE, BC ==
[2021-06-30 16:41] LABS: HEMATOCRIT 28.2 % (42.0-52.0); HEMOGLOBIN 7.7 g/dL (13.5-18.0)
== END ==
LOC: LAB 09:02
PROVIDERS: Internal Medicine
DX: D46.A Refractory cytopenia with multilineage dysplasia (principal)

== ENCOUNTER 2021-06-29 23:46 | Observation (INO) | payer MEDICARE, BC ==
[~2021-06-29] VITALS: Ht 182.9 cm; Wt 95.3 kg
[~2021-06-29 23:46] MED LIST changes: -MUCINEX 60600 MG/TA1 PO; -NATURAL IRON65 MG PO; -POTASSIUM CHLO20 ME4 PO; -ZOFRAN ODT4 MG PO
[2021-06-29] MEDS ORDERED: NATURAL IRON65 MG PO (23:53)
[2021-06-30 00:15] LABS: BASO # 0.07 (0.02-0.10); EOS # 0.16 (0.04-0.40); EOS % 2.1 % (0.0-4.0); HEMATOCRIT 29.3 % (42.0-52.0); HEMOGLOBIN 9.2 g/dL (13.5-18.0); LYMPH# 2.21 (1.50-4.00); MEAN CELL VOLUME 93 fl (78-100); MEAN CORPUSCULAR HEMOGLOBIN 29 pg (27-31); MEAN CORPUSCULAR HGB CONC 31 g/dL (33-37); MEAN PLATELET VOLUME 10.1 fl (7.4-10.4); MONO # 1.84 (0.20-0.80); NEU # 3.32 (1.40-6.50); PLATELET COUNT 215 K/mm3 (130-400); RED BLOOD COUNT 3.14 M/mm3 (4.20-5.60); RED CELL DISTRIBUTION WIDTH 19.6 % (11.5-14.5); WHITE BLOOD COUNT 7.6 K/mm3 (4.8-10.8)
[2021-06-30 00:27] LABS: ALBUMIN 3.8 g/dL (3.4-4.8)
[2021-06-30 00:28] LABS: POTASSIUM 4.8 mmol/L (3.5-5.1); SODIUM 139 mmol/L (136-145)
[2021-06-30 00:29] LABS: CALCIUM 9.3 mg/dL (8.3-10.5)
[2021-06-30 00:30] LABS: GLUCOSE 112 mg/dL (75-110); TOTAL PROTEIN 7.3 g/dL (6.2-8.1)
[2021-06-30 00:31] LABS: CARBON DIOXIDE 25 mmol/L (23-31)
[2021-06-30 00:32] LABS: TOTAL BILIRUBIN 1.6 mg/dL (0.2-1.2)
[2021-06-30 00:35] LABS: AST-SGOT 16 U/L (5-34)
[2021-06-30 00:37] LABS: ALT/SGPT 16 U/L (0-55)
[2021-06-30 00:48] LABS: TROPONIN-I < 0.03 ng/mL (<0.030)
[2021-06-30 01:41] LABS: LYMPHOCYTE 32 % (20-51); MONOCYTE 26 % (3-10); NEUTROPHILS 41 % (42-75)
[2021-06-30] MEDS ORDERED: ZOFRAN ODT4 MG PO (01:42)
[2021-06-30] MEDS ORDERED: POTASSIUM CHLO20 ME4 PO (01:42)
[2021-06-30] MEDS ORDERED: SEPTRA DS 8001 TAB PO (01:42)
[2021-06-30 02:47] LABS: URINE APPEARANCE CLEAR; URINE BILIRUBIN NEGATIVE (NEGATIVE); URINE BLOOD TRACE (NEGATIVE); URINE COLOR YELLOW; URINE GLUCOSE NEGATIVE (NEGATIVE); URINE KETONE NEGATIVE (NEGATIVE); URINE LEUKOCYTE ESTERASE NEGATIVE (NEGATIVE); URINE NITRATE NEGATIVE (NEGATIVE); URINE PROTEIN(semi-quant) TRACE mg/dL (NEGATIVE); URINE UROBILINOGEN NORMAL (NORMAL); URINE WBC 0-1 /hpf (0-3)
[2021-06-30 02:48] LABS: URINE MUCUS PRESENT (NOT PRESENT)
[2021-06-30 05:48] VITALS: BP 147/47
[2021-06-30 09:41] VITALS: BP 111/51
[2021-06-30 13:49] VITALS: BP 89/43
[2021-06-30 14:22] VITALS: BP 89/37
[2021-06-30 14:41] LABS: HEMATOCRIT 28.9 % (42.0-52.0); HEMOGLOBIN 8.8 g/dL (13.5-18.0); MEAN CELL VOLUME 96 fl (78-100); MEAN CORPUSCULAR HEMOGLOBIN 29 pg (27-31); MEAN CORPUSCULAR HGB CONC 30 g/dL (33-37); MEAN PLATELET VOLUME 10.1 fl (7.4-10.4); PLATELET COUNT 209 K/mm3 (130-400); RED BLOOD COUNT 3.02 M/mm3 (4.20-5.60); RED CELL DISTRIBUTION WIDTH 19.9 % (11.5-14.5)
[2021-06-30 14:49] LABS: ALBUMIN 3.7 g/dL (3.4-4.8)
[2021-06-30 14:50] LABS: POTASSIUM 4.9 mmol/L (3.5-5.1)
[2021-06-30 14:51] LABS: CALCIUM 8.9 mg/dL (8.3-10.5)
[2021-06-30 14:54] LABS: TOTAL BILIRUBIN 1.1 mg/dL (0.2-1.2)
[2021-06-30 15:04] LABS: TOTAL PROTEIN 6.9 g/dL (6.2-8.1)
[2021-06-30 15:54] LABS: LYMPHOCYTE 22 % (20-51); MONOCYTE 27 % (3-10); NEUTROPHILS 49 % (42-75)
[2021-06-30 16:35] VITALS: BP 104/54
[2021-06-30 21:25] VITALS: BP 128/45
[2021-07-01 05:36] VITALS: BP 121/44
[2021-07-01 09:27] VITALS: BP 130/56
[2021-07-01 10:06] LABS: BASO # 0.06 (0.02-0.10); EOS # 0.14 (0.04-0.40); EOS % 2.1 % (0.0-4.0); HEMATOCRIT 29.3 % (42.0-52.0); HEMOGLOBIN 8.8 g/dL (13.5-18.0); LYMPH# 1.45 (1.50-4.00); MEAN CELL VOLUME 97 fl (78-100); MEAN CORPUSCULAR HEMOGLOBIN 29 pg (27-31); MEAN CORPUSCULAR HGB CONC 30 g/dL (33-37); MEAN PLATELET VOLUME 10.5 fl (7.4-10.4); MONO # 1.49 (0.20-0.80); PLATELET COUNT 199 K/mm3 (130-400); RED BLOOD COUNT 3.02 M/mm3 (4.20-5.60); RED CELL DISTRIBUTION WIDTH 20.2 % (11.5-14.5); WHITE BLOOD COUNT 6.7 K/mm3 (4.8-10.8)
[2021-07-01 10:07] LABS: ALBUMIN 3.7 g/dL (3.4-4.8)
[2021-07-01 10:08] LABS: POTASSIUM 5.3 mmol/L (3.5-5.1)
[2021-07-01 10:09] LABS: CALCIUM 8.8 mg/dL (8.3-10.5)
[2021-07-01 10:10] LABS: TOTAL PROTEIN 7.2 g/dL (6.2-8.1)
[2021-07-01 10:12] LABS: TOTAL BILIRUBIN 0.9 mg/dL (0.2-1.2)
[2021-07-01 13:36] VITALS: BP 108/44
[2021-07-01 17:26] VITALS: BP 130/53
[2021-07-01 21:28] VITALS: BP 132/56
[2021-07-02 06:04] VITALS: BP 137/62
[2021-07-02 08:47] LABS: HEMATOCRIT 29.7 % (42.0-52.0); MEAN CELL VOLUME 97 fl (78-100); MEAN CORPUSCULAR HEMOGLOBIN 29 pg (27-31); MEAN CORPUSCULAR HGB CONC 30 g/dL (33-37); MEAN PLATELET VOLUME 9.9 fl (7.4-10.4); PLATELET COUNT 189 K/mm3 (130-400); RED BLOOD COUNT 3.07 M/mm3 (4.20-5.60); WHITE BLOOD COUNT 8.2 K/mm3 (4.8-10.8)
[2021-07-02 08:49] LABS: POTASSIUM 5.1 mmol/L (3.5-5.1)
[2021-07-02 08:50] LABS: CALCIUM 9.5 mg/dL (8.3-10.5)
[2021-07-02 09:09] LABS: LYMPHOCYTE 27 % (20-51); MONOCYTE 14 % (3-10); NEUTROPHILS 56 % (42-75)
[2021-07-02 09:13] LABS: ACANTHROCYTES 1+; OVALOCYTES 1+
[2021-07-02 09:30] VITALS: BP 113/46
[2021-07-02] MEDS ORDERED: MUCINEX 60600 MG/TA1 PO (10:45)
[2021-07-02 10:54] VITALS: BP 166/55
== END 2021-07-02 12:50 | disposition home health service (06) ==
LOC: ED 23:46 → MED/SURG 06-30 03:14
PROVIDERS: Nurse Practitioner; Physician Assistant; ADMIT Family Medicine
DX: R42 Dizziness and giddiness (principal); I48.91 Unspecified atrial fibrillation; J44.9 Chronic obstructive pulmonary disease, unspecified; D64.89 Other specified anemias; R00.1 Bradycardia, unspecified; T44.7X5A Adverse effect of beta-adrenoreceptor antagonists, initial encounter; Y92.239 Unspecified place in hospital as the place of occurrence of the external cause; E87.5 Hyperkalemia; I95.9 Hypotension, unspecified; N17.9 Acute kidney failure, unspecified; I13.0 Hypertensive heart and chronic kidney disease with heart failure and stage 1 through stage 4 chronic kidney disease, or unspecified chronic kidney disease; I50.9 Heart failure, unspecified; N18.9 Chronic kidney disease, unspecified; I12.9 Hypertensive chronic kidney disease with stage 1 through stage 4 chronic kidney disease, or unspecified chronic kidney disease; I25.10 Atherosclerotic heart disease of native coronary artery without angina pectoris; I25.2 Old myocardial infarction; E03.9 Hypothyroidism, unspecified; Z79.890 Hormone replacement therapy; Z87.891 Personal history of nicotine dependence; Z79.899 Other long term (current) drug therapy
CPT/HCPCS: G0378; J1650; J7030; J7040

== ENCOUNTER → 2021-06-29 | Outpatient (CLI) | payer MEDICARE, BC ==
[2021-06-29] VITALS (15 sets, daily range): BP systolic 122–144; BP diastolic 41–76
[~2021-06-29] VITALS: Ht 185.4 cm; Wt 9.5 kg
== END ==
LOC: AMSURD 06-28 09:38
DX: D46.A Refractory cytopenia with multilineage dysplasia (principal)
CPT/HCPCS: J7050; P9016

== ENCOUNTER → 2021-07-09 | Outpatient (CLI) | payer MEDICARE, BC ==
[~2021-07-09] MED LIST changes: +MUCINEX 60600 MG/TA1 PO; +NATURAL IRON65 MG PO; +POTASSIUM CHLO20 ME4 PO; +ZOFRAN ODT4 MG PO
[2021-07-09 11:43] LABS: HEMATOCRIT 33.8 % (42.0-52.0); HEMOGLOBIN 10.5 g/dL (13.5-18.0); MEAN CELL VOLUME 94 fl (78-100); MEAN CORPUSCULAR HEMOGLOBIN 29 pg (27-31); MEAN CORPUSCULAR HGB CONC 31 g/dL (33-37); MEAN PLATELET VOLUME 9.9 fl (7.4-10.4); PLATELET COUNT 194 K/mm3 (130-400); RED BLOOD COUNT 3.59 M/mm3 (4.20-5.60); RED CELL DISTRIBUTION WIDTH 20.3 % (11.5-14.5); WHITE BLOOD COUNT 7.7 K/mm3 (4.8-10.8)
[2021-07-09 12:06] LABS: ACANTHROCYTES 1+; HYPOCHROMIA 1+; LYMPHOCYTE 25 % (20-51); MONOCYTE 20 % (3-10); NEUTROPHILS 54 % (42-75); OVALOCYTES 1+
== END ==
LOC: LAB 10:33
PROVIDERS: Internal Medicine
DX: D46.9 Myelodysplastic syndrome, unspecified (principal)

== ENCOUNTER → 2021-07-15 | Outpatient (CLI) | payer MEDICARE, BC ==
[2021-07-15 14:50] LABS: HEMATOCRIT 28.3 % (42.0-52.0); HEMOGLOBIN 8.7 g/dL (13.5-18.0); MEAN CELL VOLUME 94 fl (78-100); MEAN CORPUSCULAR HEMOGLOBIN 29 pg (27-31); MEAN CORPUSCULAR HGB CONC 31 g/dL (33-37); PLATELET COUNT 250 K/mm3 (130-400); RED CELL DISTRIBUTION WIDTH 20.4 % (11.5-14.5); WHITE BLOOD COUNT 6.4 K/mm3 (4.8-10.8)
[2021-07-15 15:01] LABS: POTASSIUM 4.8 mmol/L (3.5-5.1)
[2021-07-15 15:02] LABS: CALCIUM 9.9 mg/dL (8.3-10.5)
[2021-07-15 16:10] LABS: LYMPHOCYTE 24 % (20-51); MONOCYTE 28 % (3-10); NEUTROPHILS 46 % (42-75)
== END ==
LOC: AMSURD 12:34
PROVIDERS: Nurse Practitioner
DX: I48.91 Unspecified atrial fibrillation (principal)

== ENCOUNTER → 2021-07-22 | Outpatient (CLI) | payer MEDICARE, BC ==
[2021-07-22 12:10] LABS: EOS # 0.15 (0.04-0.40); HEMATOCRIT 30.8 % (42.0-52.0); HEMOGLOBIN 9.3 g/dL (13.5-18.0); LYMPH# 1.79 (1.50-4.00); MEAN CELL VOLUME 95 fl (78-100); MEAN CORPUSCULAR HEMOGLOBIN 29 pg (27-31); MEAN CORPUSCULAR HGB CONC 30 g/dL (33-37); MEAN PLATELET VOLUME 9.7 fl (7.4-10.4); MONO # 2.03 (0.20-0.80); PLATELET COUNT 297 K/mm3 (130-400); RED BLOOD COUNT 3.25 M/mm3 (4.20-5.60); RED CELL DISTRIBUTION WIDTH 21.3 % (11.5-14.5); WHITE BLOOD COUNT 7.5 K/mm3 (4.8-10.8)
== END ==
LOC: LAB 11:42
PROVIDERS: Internal Medicine
DX: D46.A Refractory cytopenia with multilineage dysplasia (principal)

== ENCOUNTER → 2021-07-28 | Outpatient (CLI) | payer MEDICARE, BC ==
[2021-07-28 12:30] LABS: HEMATOCRIT 30.6 % (42.0-52.0); HEMOGLOBIN 9.3 g/dL (13.5-18.0); MEAN CELL VOLUME 96 fl (78-100); MEAN CORPUSCULAR HEMOGLOBIN 29 pg (27-31); MEAN CORPUSCULAR HGB CONC 30 g/dL (33-37); MEAN PLATELET VOLUME 10.1 fl (7.4-10.4); PLATELET COUNT 292 K/mm3 (130-400); RED BLOOD COUNT 3.19 M/mm3 (4.20-5.60); WHITE BLOOD COUNT 7.2 K/mm3 (4.8-10.8)
[2021-07-28 12:54] LABS: LYMPHOCYTE 28 % (20-51); MONOCYTE 22 % (3-10); NEUTROPHILS 47 % (42-75)
[2021-07-28 12:55] LABS: ACANTHROCYTES 1+; HYPOCHROMIA 1+; MICROCYTOSIS 1+; NUCLEATED RED BLOOD CELL 2 (0-6)
[2021-07-28 12:56] LABS: OVALOCYTES 1+
== END ==
LOC: LAB 11:31
PROVIDERS: Internal Medicine
DX: D46.A Refractory cytopenia with multilineage dysplasia (principal)

== ENCOUNTER → 2021-08-04 | Outpatient (CLI) | payer MEDICARE, BC ==
[2021-08-04 12:36] LABS: HEMATOCRIT 29.4 % (42.0-52.0); HEMOGLOBIN 9.2 g/dL (13.5-18.0); MEAN CELL VOLUME 95 fl (78-100); MEAN CORPUSCULAR HEMOGLOBIN 30 pg (27-31); MEAN CORPUSCULAR HGB CONC 31 g/dL (33-37); MEAN PLATELET VOLUME 10.5 fl (7.4-10.4); PLATELET COUNT 285 K/mm3 (130-400); RED CELL DISTRIBUTION WIDTH 22.8 % (11.5-14.5); WHITE BLOOD COUNT 5.5 K/mm3 (4.8-10.8)
[2021-08-04 12:57] LABS: BAND 1 % (0-10); LYMPHOCYTE 27 % (20-51); MONOCYTE 22 % (3-10); NEUTROPHILS 46 % (42-75)
[2021-08-04 12:58] LABS: ACANTHROCYTES 2+; TEAR DROP CELLS 1+
== END ==
LOC: LAB 11:36
PROVIDERS: Internal Medicine
DX: D46.A Refractory cytopenia with multilineage dysplasia (principal)

== ENCOUNTER → 2021-08-11 | Outpatient (CLI) | payer MEDICARE, BC ==
[2021-08-11 10:17] LABS: HEMATOCRIT 24.5 % (42.0-52.0); HEMOGLOBIN 7.6 g/dL (13.5-18.0); MEAN CELL VOLUME 95 fl (78-100); MEAN CORPUSCULAR HEMOGLOBIN 30 pg (27-31); MEAN CORPUSCULAR HGB CONC 31 g/dL (33-37); MEAN PLATELET VOLUME 9.8 fl (7.4-10.4); PLATELET COUNT 243 K/mm3 (130-400); RED BLOOD COUNT 2.58 M/mm3 (4.20-5.60); RED CELL DISTRIBUTION WIDTH 23.5 % (11.5-14.5); WHITE BLOOD COUNT 5.6 K/mm3 (4.8-10.8)
[2021-08-11 11:20] LABS: LYMPHOCYTE 30 % (20-51); MONOCYTE 17 % (3-10); NEUTROPHILS 47 % (42-75); NUCLEATED RED BLOOD CELL 1 (0-6)
[2021-08-11 11:22] LABS: OVALOCYTES 1+; TEAR DROP CELLS 1+
[2021-08-11 11:23] LABS: ACANTHROCYTES 1+; HYPOCHROMIA 1+
[2021-08-11 15:02] LABS: HEMATOCRIT 25.9 % (42.0-52.0); HEMOGLOBIN 8.1 g/dL (13.5-18.0)
== END ==
LOC: AMSURD 10:01 → LAB 10:01
PROVIDERS: Internal Medicine
DX: D46.A Refractory cytopenia with multilineage dysplasia (principal)

== ENCOUNTER → 2021-08-12 | Outpatient (CLI) | payer MEDICARE, BC ==
[~2021-08-12] VITALS: Ht 182.9 cm; Wt 95.3 kg
[2021-08-12] VITALS (15 sets, daily range): BP systolic 94–126; BP diastolic 44–70
== END ==
LOC: AMSURD 09:57 → EDSTATUS 10:22 → AMSURD 19:44
DX: D46.A Refractory cytopenia with multilineage dysplasia (principal)
CPT/HCPCS: J1940

== ENCOUNTER → 2021-08-18 | Outpatient (CLI) | payer MEDICARE, BC ==
[2021-08-18 10:52] LABS: HEMATOCRIT 31.6 % (42.0-52.0); HEMOGLOBIN 9.8 g/dL (13.5-18.0); MEAN CELL VOLUME 97 fl (78-100); MEAN CORPUSCULAR HEMOGLOBIN 30 pg (27-31); MEAN CORPUSCULAR HGB CONC 31 g/dL (33-37); MEAN PLATELET VOLUME 10.8 fl (7.4-10.4); PLATELET COUNT 263 K/mm3 (130-400); RED BLOOD COUNT 3.25 M/mm3 (4.20-5.60); RED CELL DISTRIBUTION WIDTH 21.5 % (11.5-14.5); WHITE BLOOD COUNT 6.4 K/mm3 (4.8-10.8)
[2021-08-18 11:32] LABS: NEUTROPHILS 45 % (42-75)
[2021-08-18 11:33] LABS: ACANTHROCYTES 1+; LYMPHOCYTE 29 % (20-51); MONOCYTE 18 % (3-10); OVALOCYTES 2+
== END ==
LOC: LAB 10:25
PROVIDERS: Internal Medicine
DX: D46.9 Myelodysplastic syndrome, unspecified (principal); I11.0 Hypertensive heart disease with heart failure; I50.22 Chronic systolic (congestive) heart failure; D46.A Refractory cytopenia with multilineage dysplasia

== ENCOUNTER → 2021-08-25 | Outpatient (CLI) | payer MEDICARE, BC ==
[2021-08-25 11:36] LABS: BASO # 0.08 K/mm3 (0.02-0.10); EOS # 0.17 K/mm3 (0.04-0.40); EOS % 3.3 % (0.0-4.0); HEMATOCRIT 29.8 % (42.0-52.0); HEMOGLOBIN 9.2 g/dL (13.5-18.0); LYMPH# 1.34 K/mm3 (1.50-4.00); MEAN CELL VOLUME 98 fl (78-100); MEAN CORPUSCULAR HEMOGLOBIN 30 pg (27-31); MEAN CORPUSCULAR HGB CONC 31 g/dL (33-37); MEAN PLATELET VOLUME 10.7 fl (7.4-10.4); MONO # 1.18 K/mm3 (0.20-0.80); NEU # 2.36 K/mm3 (1.40-6.50); PLATELET COUNT 248 K/mm3 (130-400); RED BLOOD COUNT 3.05 M/mm3 (4.20-5.60); RED CELL DISTRIBUTION WIDTH 21.8 % (11.5-14.5); WHITE BLOOD COUNT 5.2 K/mm3 (4.8-10.8)
== END ==
LOC: LAB 10:31
PROVIDERS: Internal Medicine
DX: D46.9 Myelodysplastic syndrome, unspecified (principal); I11.0 Hypertensive heart disease with heart failure; I50.22 Chronic systolic (congestive) heart failure; D46.A Refractory cytopenia with multilineage dysplasia

== ENCOUNTER → 2021-09-02 | Outpatient (CLI) | payer MEDICARE, BC ==
[2021-09-02 11:05] LABS: HEMATOCRIT 29.5 % (42.0-52.0); HEMOGLOBIN 9.1 g/dL (13.5-18.0); RED BLOOD COUNT 2.99 M/mm3 (4.20-5.60); RED CELL DISTRIBUTION WIDTH 22.7 % (11.5-14.5); WHITE BLOOD COUNT 5.7 K/mm3 (4.8-10.8)
[2021-09-02 11:46] LABS: POTASSIUM 4.4 mmol/L (3.5-5.1)
[2021-09-02 11:47] LABS: CALCIUM 9.5 mg/dL (8.3-10.5)
[2021-09-02 11:49] LABS: TOTAL PROTEIN 6.9 g/dL (6.2-8.1)
[2021-09-02 11:50] LABS: TOTAL BILIRUBIN 1.3 mg/dL (0.2-1.2)
== END ==
LOC: LAB 10:22
PROVIDERS: Internal Medicine
DX: D64.9 Anemia, unspecified (principal); Z16.35 Resistance to multiple antimicrobial drugs

== ENCOUNTER → 2021-09-08 | Outpatient (CLI) | payer MEDICARE, BC ==
[2021-09-08 13:02] LABS: BASO # 0.07 K/mm3 (0.02-0.10); EOS # 0.11 K/mm3 (0.04-0.40); EOS % 2.1 % (0.0-4.0); HEMATOCRIT 26.8 % (42.0-52.0); HEMOGLOBIN 8.2 g/dL (13.5-18.0); LYMPH# 1.46 K/mm3 (1.50-4.00); MEAN CELL VOLUME 99 fl (78-100); MEAN CORPUSCULAR HEMOGLOBIN 30 pg (27-31); MEAN CORPUSCULAR HGB CONC 31 g/dL (33-37); MEAN PLATELET VOLUME 10.5 fl (7.4-10.4); MONO # 1.45 K/mm3 (0.20-0.80); NEU # 2.11 K/mm3 (1.40-6.50); PLATELET COUNT 246 K/mm3 (130-400); WHITE BLOOD COUNT 5.2 K/mm3 (4.8-10.8)
== END ==
LOC: LAB 12:11
PROVIDERS: Internal Medicine
DX: D46.9 Myelodysplastic syndrome, unspecified (principal); I11.0 Hypertensive heart disease with heart failure; I50.22 Chronic systolic (congestive) heart failure; D46.A Refractory cytopenia with multilineage dysplasia

== ENCOUNTER → 2021-09-15 | Outpatient (CLI) | payer MEDICARE, BC ==
[2021-09-15 15:03] LABS: HEMATOCRIT 25.7 % (42.0-52.0); HEMOGLOBIN 7.9 g/dL (13.5-18.0); MEAN CELL VOLUME 101 fl (78-100); MEAN CORPUSCULAR HEMOGLOBIN 31 pg (27-31); MEAN CORPUSCULAR HGB CONC 31 g/dL (33-37); MEAN PLATELET VOLUME 10.7 fl (7.4-10.4); PLATELET COUNT 258 K/mm3 (130-400); RED BLOOD COUNT 2.55 M/mm3 (4.20-5.60); RED CELL DISTRIBUTION WIDTH 23.9 % (11.5-14.5); WHITE BLOOD COUNT 8.7 K/mm3 (4.8-10.8)
[2021-09-15 16:23] LABS: LYMPHOCYTE 26 % (20-51); MONOCYTE 30 % (3-10); NEUTROPHILS 42 % (42-75)
== END ==
LOC: LAB 12:35
PROVIDERS: Internal Medicine
DX: D46.A Refractory cytopenia with multilineage dysplasia (principal)

== ENCOUNTER → 2021-09-16 | Outpatient (CLI) | payer MEDICARE, BC | LOC: LAB 14:03 | DX: D46.A Refractory cytopenia with multilineage dysplasia (principal) ==

== ENCOUNTER → 2021-09-17 | Outpatient (CLI) | payer MEDICARE, BC ==
[~2021-09-17] VITALS: Ht 182.9 cm; Wt 95.3 kg
[2021-09-17] VITALS (14 sets, daily range): BP systolic 91–124; BP diastolic 43–74
[2021-09-17 17:10] LABS: HEMATOCRIT 29.6 % (42.0-52.0); HEMOGLOBIN 9.4 g/dL (13.5-18.0)
== END ==
LOC: AMSURD 08:44
PROVIDERS: Family Medicine
DX: D46.A Refractory cytopenia with multilineage dysplasia (principal)
CPT/HCPCS: P9016

== ENCOUNTER → 2021-09-22 | Outpatient (CLI) | payer MEDICARE, BC ==
[2021-09-22 15:36] LABS: HEMATOCRIT 31.5 % (42.0-52.0); HEMOGLOBIN 9.6 g/dL (13.5-18.0); MEAN CELL VOLUME 100 fl (78-100); MEAN CORPUSCULAR HEMOGLOBIN 30 pg (27-31); MEAN CORPUSCULAR HGB CONC 31 g/dL (33-37); MEAN PLATELET VOLUME 9.7 fl (7.4-10.4); PLATELET COUNT 245 K/mm3 (130-400); RED BLOOD COUNT 3.16 M/mm3 (4.20-5.60); RED CELL DISTRIBUTION WIDTH 21.2 % (11.5-14.5); WHITE BLOOD COUNT 7.1 K/mm3 (4.8-10.8)
[2021-09-22 15:46] LABS: ALBUMIN 3.8 g/dL (3.4-4.8); POTASSIUM 4.8 mmol/L (3.5-5.1)
[2021-09-22 15:47] LABS: CALCIUM 9.6 mg/dL (8.3-10.5)
[2021-09-22 15:48] LABS: TOTAL PROTEIN 7.2 g/dL (6.2-8.1)
[2021-09-22 15:50] LABS: TOTAL BILIRUBIN 0.9 mg/dL (0.2-1.2)
[2021-09-22 16:53] LABS: LYMPHOCYTE 28 % (20-51); MONOCYTE 25 % (3-10); NEUTROPHILS 45 % (42-75)
== END ==
LOC: LAB 15:10
PROVIDERS: Internal Medicine
DX: D46.A Refractory cytopenia with multilineage dysplasia (principal)

== ENCOUNTER → 2021-09-30 | Outpatient (CLI) | payer MEDICARE, BC ==
[2021-09-30 14:31] LABS: HEMATOCRIT 28.8 % (42.0-52.0); HEMOGLOBIN 8.9 g/dL (13.5-18.0); MEAN CELL VOLUME 100 fl (78-100); MEAN CORPUSCULAR HEMOGLOBIN 31 pg (27-31); MEAN CORPUSCULAR HGB CONC 31 g/dL (33-37); MEAN PLATELET VOLUME 10.6 fl (7.4-10.4); PLATELET COUNT 260 K/mm3 (130-400); RED BLOOD COUNT 2.88 M/mm3 (4.20-5.60); RED CELL DISTRIBUTION WIDTH 21.2 % (11.5-14.5); WHITE BLOOD COUNT 6.2 K/mm3 (4.8-10.8)
[2021-09-30 15:39] LABS: LYMPHOCYTE 26 % (20-51); MONOCYTE 30 % (3-10); NEUTROPHILS 42 % (42-75)
== END ==
LOC: LAB 14:11
PROVIDERS: Internal Medicine
DX: D46.A Refractory cytopenia with multilineage dysplasia (principal)

== ENCOUNTER 2021-10-07 14:03 | Outpatient (RCR) | payer MEDICARE, BC | END 2021-11-03 17:00 | disposition home or self-care (01) | LOC: PT 14:03 | DX: D46.9 Myelodysplastic syndrome, unspecified (principal); M51.36 Other intervertebral disc degeneration, lumbar region ==

== ENCOUNTER → 2021-10-07 | Outpatient (CLI) | payer MEDICARE, BC ==
[2021-10-07 15:10] LABS: HEMATOCRIT 28.3 % (42.0-52.0); HEMOGLOBIN 8.7 g/dL (13.5-18.0); MEAN CELL VOLUME 100 fl (78-100); MEAN CORPUSCULAR HEMOGLOBIN 31 pg (27-31); MEAN CORPUSCULAR HGB CONC 31 g/dL (33-37); MEAN PLATELET VOLUME 9.9 fl (7.4-10.4); PLATELET COUNT 280 K/mm3 (130-400); RED BLOOD COUNT 2.83 M/mm3 (4.20-5.60); RED CELL DISTRIBUTION WIDTH 21.8 % (11.5-14.5); WHITE BLOOD COUNT 9.5 K/mm3 (4.8-10.8)
[2021-10-07 16:05] LABS: LYMPHOCYTE 21 % (20-51); MICROCYTOSIS 1+; MONOCYTE 23 % (3-10); NEUTROPHILS 50 % (42-75); NUCLEATED RED BLOOD CELL 1 (0-6); POLYCHROMASIA 1+
[2021-10-07 16:06] LABS: OVALOCYTES 1+; SPHEROCYTE 1+
== END ==
LOC: LAB 13:57
PROVIDERS: Internal Medicine
DX: D46.A Refractory cytopenia with multilineage dysplasia (principal)

== ENCOUNTER → 2021-10-14 | Outpatient (CLI) | payer MEDICARE, BC ==
[2021-10-14 14:06] LABS: HEMATOCRIT 26.9 % (42.0-52.0); HEMOGLOBIN 8.2 g/dL (13.5-18.0); MEAN CELL VOLUME 102 fl (78-100); MEAN CORPUSCULAR HEMOGLOBIN 31 pg (27-31); MEAN CORPUSCULAR HGB CONC 31 g/dL (33-37); MEAN PLATELET VOLUME 10.1 fl (7.4-10.4); PLATELET COUNT 223 K/mm3 (130-400); RED BLOOD COUNT 2.65 M/mm3 (4.20-5.60); RED CELL DISTRIBUTION WIDTH 22.2 % (11.5-14.5); WHITE BLOOD COUNT 7.6 K/mm3 (4.8-10.8)
[2021-10-14 14:25] LABS: NEUTROPHILS 39 % (42-75)
[2021-10-14 14:26] LABS: BAND 0 % (0-10); LYMPHOCYTE 29 % (20-51); MONOCYTE 25 % (3-10)
== END ==
LOC: LAB 13:53
PROVIDERS: Internal Medicine
DX: D46.A Refractory cytopenia with multilineage dysplasia (principal)

== ENCOUNTER → 2021-10-21 | Outpatient (CLI) | payer MEDICARE, BC ==
[2021-10-21 11:12] LABS: HEMATOCRIT 27.1 % (42.0-52.0); HEMOGLOBIN 8.2 g/dL (13.5-18.0); MEAN CELL VOLUME 100 fl (78-100); MEAN CORPUSCULAR HEMOGLOBIN 30 pg (27-31); MEAN CORPUSCULAR HGB CONC 30 g/dL (33-37); MEAN PLATELET VOLUME 10.4 fl (7.4-10.4); PLATELET COUNT 250 K/mm3 (130-400); RED BLOOD COUNT 2.72 M/mm3 (4.20-5.60); RED CELL DISTRIBUTION WIDTH 22.3 % (11.5-14.5); WHITE BLOOD COUNT 6.2 K/mm3 (4.8-10.8)
[2021-10-21 11:30] LABS: LYMPHOCYTE 23 % (20-51); MONOCYTE 27 % (3-10); NEUTROPHILS 40 % (42-75)
== END ==
LOC: LAB 10:55
PROVIDERS: Internal Medicine
DX: D46.A Refractory cytopenia with multilineage dysplasia (principal)

== ENCOUNTER → 2021-10-22 | Outpatient (CLI) | payer MEDICARE, BC ==
[2021-10-22 14:45] LABS: POTASSIUM 5.6 mmol/L (3.5-5.1)
[2021-10-22 14:46] LABS: CALCIUM 9.2 mg/dL (8.3-10.5)
[2021-10-22 14:47] LABS: TOTAL PROTEIN 7.6 g/dL (6.2-8.1)
== END ==
LOC: LAB 14:12
PROVIDERS: Family Medicine
DX: I50.22 Chronic systolic (congestive) heart failure (principal)

== ENCOUNTER → 2021-10-27 | Outpatient (CLI) | payer MEDICARE, BC ==
[2021-10-27 13:27] LABS: BASO # 0.08 K/mm3 (0.02-0.10); EOS # 0.22 K/mm3 (0.04-0.40); EOS % 3.6 % (0.0-4.0); HEMATOCRIT 27.4 % (42.0-52.0); HEMOGLOBIN 8.4 g/dL (13.5-18.0); LYMPH# 1.85 K/mm3 (1.50-4.00); MEAN CELL VOLUME 99 fl (78-100); MEAN CORPUSCULAR HEMOGLOBIN 30 pg (27-31); MEAN CORPUSCULAR HGB CONC 31 g/dL (33-37); MONO # 1.41 K/mm3 (0.20-0.80); PLATELET COUNT 268 K/mm3 (130-400); RED BLOOD COUNT 2.77 M/mm3 (4.20-5.60); WHITE BLOOD COUNT 6.1 K/mm3 (4.8-10.8)
[2021-10-27 13:33] LABS: POTASSIUM 4.6 mmol/L (3.5-5.1)
[2021-10-27 13:34] LABS: CALCIUM 9.3 mg/dL (8.3-10.5)
[2021-10-27 13:36] LABS: TOTAL PROTEIN 7.3 g/dL (6.2-8.1)
== END ==
LOC: LAB 12:17
PROVIDERS: Internal Medicine
DX: D46.9 Myelodysplastic syndrome, unspecified (principal)

== ENCOUNTER → 2021-11-04 | Outpatient (CLI) | payer MEDICARE, BC ==
[2021-11-04 12:10] LABS: BASO # 0.04 K/mm3 (0.02-0.10); EOS # 0.18 K/mm3 (0.04-0.40); EOS % 3.7 % (0.0-4.0); HEMATOCRIT 26.4 % (42.0-52.0); HEMOGLOBIN 8.2 g/dL (13.5-18.0); LYMPH# 1.73 K/mm3 (1.50-4.00); MEAN CELL VOLUME 99 fl (78-100); MEAN CORPUSCULAR HEMOGLOBIN 31 pg (27-31); MEAN CORPUSCULAR HGB CONC 31 g/dL (33-37); MEAN PLATELET VOLUME 10.6 fl (7.4-10.4); MONO # 1.25 K/mm3 (0.20-0.80); NEU # 1.56 K/mm3 (1.40-6.50); PLATELET COUNT 282 K/mm3 (130-400); RED BLOOD COUNT 2.67 M/mm3 (4.20-5.60); RED CELL DISTRIBUTION WIDTH 24.3 % (11.5-14.5); WHITE BLOOD COUNT 4.9 K/mm3 (4.8-10.8)
[2021-11-04 12:16] LABS: POTASSIUM 4.5 mmol/L (3.5-5.1)
[2021-11-04 12:17] LABS: CALCIUM 9.5 mg/dL (8.3-10.5)
[2021-11-04 12:18] LABS: TOTAL PROTEIN 7.3 g/dL (6.2-8.1)
[2021-11-04 12:20] LABS: TOTAL BILIRUBIN 0.9 mg/dL (0.2-1.2)
== END ==
LOC: LAB 11:27
PROVIDERS: Internal Medicine
DX: D46.9 Myelodysplastic syndrome, unspecified (principal)

== ENCOUNTER → 2021-11-11 | Outpatient (CLI) | payer MEDICARE, BC ==
[2021-11-11 13:52] LABS: BASO # 0.11 K/mm3 (0.02-0.10); EOS # 0.17 K/mm3 (0.04-0.40); EOS % 1.9 % (0.0-4.0); HEMATOCRIT 25.2 % (42.0-52.0); HEMOGLOBIN 7.7 g/dL (13.5-18.0); LYMPH# 2.16 K/mm3 (1.50-4.00); MEAN CELL VOLUME 100 fl (78-100); MEAN CORPUSCULAR HEMOGLOBIN 31 pg (27-31); MEAN CORPUSCULAR HGB CONC 31 g/dL (33-37); MEAN PLATELET VOLUME 9.7 fl (7.4-10.4); NEU # 3.97 K/mm3 (1.40-6.50); PLATELET COUNT 261 K/mm3 (130-400); RED BLOOD COUNT 2.52 M/mm3 (4.20-5.60); RED CELL DISTRIBUTION WIDTH 25.1 % (11.5-14.5); WHITE BLOOD COUNT 8.8 K/mm3 (4.8-10.8)
== END ==
LOC: LAB 13:42
PROVIDERS: Internal Medicine
DX: D46.9 Myelodysplastic syndrome, unspecified (principal)

== ENCOUNTER → 2021-11-12 | Outpatient (CLI) | payer MEDICARE, BC | LOC: LAB 13:39 | DX: D64.9 Anemia, unspecified (principal) ==

== ENCOUNTER → 2021-11-13 | Outpatient (CLI) | payer MEDICARE, BC ==
[2021-11-13] VITALS (18 sets, daily range): BP systolic 96–125; BP diastolic 41–84
[~2021-11-13] VITALS: Ht 182.9 cm; Wt 97.7 kg
== END ==
LOC: AMSURD 10:30
DX: D46.A Refractory cytopenia with multilineage dysplasia (principal)
CPT/HCPCS: P9016

== ENCOUNTER 2021-11-16 00:31 | Emergency (ER) | payer MEDICARE, BC ==
[~2021-11-16] VITALS: Wt 97.6 kg
[2021-11-16 02:11] LABS: ALBUMIN 3.9 g/dL (3.4-4.8)
[2021-11-16 02:12] LABS: POTASSIUM 4.6 mmol/L (3.5-5.1)
[2021-11-16 02:13] LABS: CALCIUM 9.4 mg/dL (8.3-10.5); HEMATOCRIT 31.9 % (42.0-52.0); HEMOGLOBIN 10.1 g/dL (13.5-18.0); MEAN CELL VOLUME 97 fl (78-100); MEAN CORPUSCULAR HEMOGLOBIN 31 pg (27-31); MEAN CORPUSCULAR HGB CONC 32 g/dL (33-37); MEAN PLATELET VOLUME 9.9 fl (7.4-10.4); PLATELET COUNT 207 K/mm3 (130-400); RED CELL DISTRIBUTION WIDTH 22.6 % (11.5-14.5); WHITE BLOOD COUNT 16.1 K/mm3 (4.8-10.8)
[2021-11-16 02:14] LABS: TOTAL PROTEIN 7.2 g/dL (6.2-8.1)
[2021-11-16 02:16] LABS: TOTAL BILIRUBIN 1.8 mg/dL (0.2-1.2)
[2021-11-16 03:21] LABS: BAND 2 % (0-10); HYPOCHROMIA 1+; LYMPHOCYTE 5 % (20-51); MONOCYTE 12 % (3-10); NEUTROPHILS 80 % (42-75)
[2021-11-16 03:22] LABS: OVALOCYTES 1+; SCHISTOCYTES 1+
[2021-11-16 05:04] LABS: URINE APPEARANCE HAZY; URINE BILIRUBIN NEGATIVE (NEGATIVE); URINE BLOOD NEGATIVE (NEGATIVE); URINE COLOR YELLOW; URINE GLUCOSE NEGATIVE (NEGATIVE); URINE KETONE NEGATIVE (NEGATIVE); URINE PROTEIN(semi-quant) TRACE (NEGATIVE); URINE UROBILINOGEN NORMAL (NORMAL)
[2021-11-16 05:05] LABS: URINE LEUKOCYTE ESTERASE NEGATIVE (NEGATIVE); URINE NITRATE NEGATIVE (NEGATIVE)
[2021-11-16 06:20] VITALS: BP 116/61
== END 2021-11-16 06:20 | disposition other institution (70) ==
LOC: ED 00:31
PROVIDERS: Family Medicine
DX: K81.0 Acute cholecystitis (principal); K85.90 Acute pancreatitis without necrosis or infection, unspecified; D46.9 Myelodysplastic syndrome, unspecified; I25.10 Atherosclerotic heart disease of native coronary artery without angina pectoris; Z87.891 Personal history of nicotine dependence; Z79.82 Long term (current) use of aspirin; Z20.822 Contact with and (suspected) exposure to COVID-19
CPT/HCPCS: J2270; J2543; J7030; Q9967

== ENCOUNTER 2021-11-19 19:47 | Inpatient (IN) | payer MEDICARE, BC ==
[~2021-11-19] VITALS: Ht 182.9 cm; Wt 100.9 kg
[2021-11-20 02:56] VITALS: BP 118/55
[2021-11-20 05:43] LABS: HEMATOCRIT 25.9 % (42.0-52.0); MEAN CELL VOLUME 100 fl (78-100); MEAN CORPUSCULAR HEMOGLOBIN 31 pg (27-31); MEAN CORPUSCULAR HGB CONC 31 g/dL (33-37); MEAN PLATELET VOLUME 10.5 fl (7.4-10.4); PLATELET COUNT 200 K/mm3 (130-400); RED BLOOD COUNT 2.58 M/mm3 (4.20-5.60); RED CELL DISTRIBUTION WIDTH 22.6 % (11.5-14.5); WHITE BLOOD COUNT 7.8 K/mm3 (4.8-10.8)
[2021-11-20 05:52] LABS: ALBUMIN 3.2 g/dL (3.4-4.8); POTASSIUM 3.2 mmol/L (3.5-5.1)
[2021-11-20 05:54] LABS: CALCIUM 8.7 mg/dL (8.3-10.5)
[2021-11-20 05:55] LABS: TOTAL PROTEIN 6.5 g/dL (6.2-8.1)
[2021-11-20 05:57] LABS: BAND 2 % (0-10); HYPOCHROMIA 1+; LYMPHOCYTE 12 % (20-51); MONOCYTE 20 % (3-10); NEUTROPHILS 65 % (42-75); TOTAL BILIRUBIN 1.9 mg/dL (0.2-1.2)
[2021-11-20 18:00] VITALS: BP 133/79
[2021-11-21 05:49] VITALS: BP 166/67
[2021-11-21 06:02] VITALS: BP 166/67
[2021-11-21 15:50] VITALS: BP 118/66
[2021-11-22 06:04] LABS: HEMATOCRIT 26.2 % (42.0-52.0); HEMOGLOBIN 8.2 g/dL (13.5-18.0); MEAN CELL VOLUME 101 fl (78-100); MEAN CORPUSCULAR HEMOGLOBIN 32 pg (27-31); MEAN CORPUSCULAR HGB CONC 31 g/dL (33-37); MEAN PLATELET VOLUME 10.4 fl (7.4-10.4); PLATELET COUNT 212 K/mm3 (130-400); POTASSIUM 4.4 mmol/L (3.5-5.1); RED CELL DISTRIBUTION WIDTH 22.5 % (11.5-14.5); WHITE BLOOD COUNT 7.8 K/mm3 (4.8-10.8)
[2021-11-22 06:05] LABS: CALCIUM 9.5 mg/dL (8.3-10.5)
[2021-11-22 06:10] LABS: BAND 2 % (0-10); HYPOCHROMIA 1+; LYMPHOCYTE 21 % (20-51); MONOCYTE 22 % (3-10); NEUTROPHILS 53 % (42-75)
[2021-11-22 06:11] VITALS: BP 164/63
[2021-11-22 17:41] VITALS: BP 121/65
[2021-11-23 05:55] VITALS: BP 120/71
[2021-11-23 17:31] VITALS: BP 129/68
[2021-11-24 06:20] VITALS: BP 136/68
[2021-11-24 17:50] VITALS: BP 121/66
[2021-11-25 05:57] VITALS: BP 149/54
[2021-11-25 18:08] VITALS: BP 150/68
[2021-11-26 06:02] VITALS: BP 147/58
[2021-11-26 07:06] LABS: POTASSIUM 4.4 mmol/L (3.5-5.1)
[2021-11-26 07:07] LABS: CALCIUM 9.8 mg/dL (8.3-10.5)
[2021-11-26 07:08] LABS: MEAN CELL VOLUME 100 fl (78-100); MEAN CORPUSCULAR HEMOGLOBIN 28 pg (27-31); MEAN CORPUSCULAR HGB CONC 28 g/dL (33-37); PLATELET COUNT 384 K/mm3 (130-400); RED CELL DISTRIBUTION WIDTH 23.5 % (11.5-14.5)
[2021-11-26 07:12] LABS: HEMATOCRIT 17.7 % (42.0-52.0); RED BLOOD COUNT 1.77 M/mm3 (4.20-5.60); WHITE BLOOD COUNT 1.7 K/mm3 (4.8-10.8)
[2021-11-26 08:23] LABS: BAND 1 % (0-10); LYMPHOCYTE 32 % (20-51); MONOCYTE 21 % (3-10); NEUTROPHILS 37 % (42-75)
[2021-11-26 08:24] LABS: NUCLEATED RED BLOOD CELL 2 (0-6)
[2021-11-26 08:25] LABS: HYPOCHROMIA 2+
== END 2021-11-26 08:28 | disposition short-term general hospital (02) | DRG 947 ==
LOC: MED/SURG 19:47
PROVIDERS: Internal Medicine Cardiovascular Disease; ADMIT Physician Assistant
DX: R53.81 Other malaise (principal); K85.90 Acute pancreatitis without necrosis or infection, unspecified; K81.0 Acute cholecystitis; D47.Z9 Other specified neoplasms of uncertain behavior of lymphoid, hematopoietic and related tissue; N28.9 Disorder of kidney and ureter, unspecified; I10 Essential (primary) hypertension; E87.6 Hypokalemia; I25.10 Atherosclerotic heart disease of native coronary artery without angina pectoris; K59.00 Constipation, unspecified; D46.9 Myelodysplastic syndrome, unspecified; Z79.82 Long term (current) use of aspirin; Z87.891 Personal history of nicotine dependence; Z20.822 Contact with and (suspected) exposure to COVID-19
CPT/HCPCS: J1650; J1940; J2270; J2543; J7030; Q9967

== ENCOUNTER 2021-11-26 08:28 | Inpatient (IN) | payer MEDICARE, BC ==
[2021-11-26] VITALS (11 sets, daily range): BP systolic 111–150; BP diastolic 50–70
[~2021-11-26] VITALS: Ht 182.9 cm; Wt 98.0 kg
--- NOTE | 2021-11-26 15:07 | NUR ---
Called Dr. Ulises Chambers's nurse [phone]. left a vm to call this CM back regarding Procrit and Labs.
--- NOTE | 2021-11-26 15:16 | NUR ---
Pt recieving the 2nd unit of blood at this time. No s/sx of an adverse reaction. Pt does appear to be more confused than this morning. is now at bedside.
--- NOTE | 2021-11-26 15:58 | NUR ---
Spoke with Pati - Nurse at Dr. Ulises Chambers's office. Gave her the update on blood transfusion of 2 units. Advised increase confusion and Labs as follows. WBC 1.7, RBC 1.77 Hgb 5.0, hct 17.7 Plt Count 384. She will give Dr. Chambers this information and call us back with any information.
--- NOTE | 2021-11-26 17:55 | NUR ---
All vitals done after initial 15min vital signs are placed in the chart.
--- NOTE | 2021-11-26 21:30 | NUR ---
Report received from Josephine DOMINGUEZ. Patient resting in bed. Confused off and on to time and place, situation. Has set off bed alarm x3 this shift. Staff in to provided cares and reorientation PRN. Assessment completed. Denies pain. Lab in to draw repeat Hemoglobin S/P blood transfusion today. Oxygen in place at 2L/NC. HS medications taken whole without difficulty. Bed alarm on. Call light in reach.
[2021-11-26 21:55] LABS: HEMATOCRIT 31.7 % (42.0-52.0); HEMOGLOBIN 10.2 g/dL (13.5-18.0); MEAN CELL VOLUME 94 fl (78-100); MEAN CORPUSCULAR HEMOGLOBIN 30 pg (27-31); MEAN CORPUSCULAR HGB CONC 32 g/dL (33-37); MEAN PLATELET VOLUME 9.9 fl (7.4-10.4); PLATELET COUNT 224 K/mm3 (130-400); RED BLOOD COUNT 3.36 M/mm3 (4.20-5.60); WHITE BLOOD COUNT 6.3 K/mm3 (4.8-10.8)
[2021-11-26 22:16] LABS: LYMPHOCYTE 30 % (20-51); MONOCYTE 20 % (3-10); NEUTROPHILS 47 % (42-75); NUCLEATED RED BLOOD CELL 2 (0-6)
[2021-11-26 22:17] LABS: HYPOCHROMIA 1+; MICROCYTOSIS 1+; OVALOCYTES 1+; POLYCHROMASIA 1+
--- NOTE | 2021-11-26 22:30 | NUR ---
Trazodone started tonight at 25 MG PO. Patient calls for a "midnight" snack after trying to exit bed thinking it was time for Breakfast. Eating cooking at bedside.
--- NOTE | 2021-11-27 01:55 | NUR ---
Remains awake, calling out for . HERBICIDE SERVICE SALES REPRESENTATIVE to room and advises patient he is not home he is in the hospital. Patient states "oh shit". Denies wants or needs at this time.
[2021-11-27 02:20] VITALS: BP 124/64
--- NOTE | 2021-11-27 04:16 | NUR ---
Has not slept tonight. Remains confused to place/situation. Wanted to call and 0300 and now to "come get me". Staff reorients to time and place but recall is limited.
[2021-11-27 06:19] VITALS: BP 132/63
[2021-11-27 06:35] LABS: HEMATOCRIT 31.5 % (42.0-52.0); HEMOGLOBIN 9.8 g/dL (13.5-18.0); MEAN CELL VOLUME 96 fl (78-100); MEAN CORPUSCULAR HEMOGLOBIN 30 pg (27-31); MEAN CORPUSCULAR HGB CONC 31 g/dL (33-37); MEAN PLATELET VOLUME 10.3 fl (7.4-10.4); PLATELET COUNT 223 K/mm3 (130-400); RED CELL DISTRIBUTION WIDTH 22.1 % (11.5-14.5); WHITE BLOOD COUNT 6.6 K/mm3 (4.8-10.8)
[2021-11-27 07:01] LABS: POTASSIUM 4.1 mmol/L (3.5-5.1)
[2021-11-27 07:03] LABS: CALCIUM 9.3 mg/dL (8.3-10.5)
--- NOTE | 2021-11-27 07:06 | NUR ---
Report to Josephine DOMINGUEZ.
[2021-11-27 07:08] LABS: BAND 1 % (0-10); LYMPHOCYTE 27 % (20-51); NEUTROPHILS 41 % (42-75)
[2021-11-27 07:09] LABS: MONOCYTE 29 % (3-10)
[2021-11-27 10:00] VITALS: BP 114/58
[2021-11-27 17:54] VITALS: BP 104/60
--- NOTE | 2021-11-27 19:06 | NUR ---
Report given to TERRY Reese.
--- NOTE | 2021-11-27 20:00 | NUR ---
Report received from Josephine DOMINGUEZ. Patient [place] ST[facility] [place] [facility] [place] Had [place] and then assisted to bed. Patient has been sleeping quietly since that time. Oxygen in place. Bed alarm on .
--- NOTE | 2021-11-27 22:40 | NUR ---
Awake, rests quietly. Looking tired and worn out. Took oxygen out of nose. Replaced by staff. Confused. Denies pain. HS medications taken at this time. Brief dry. Voids in urinal with assist of CLINICAL ASSESSMENT MANAGER. Repostioned in bed. Assessment completed. Bed alarm on. Call light in reach.
[2021-11-27 22:56] VITALS: BP 126/57
--- NOTE | 2021-11-28 01:21 | NUR ---
Resting quietly with eyes closed. No signs of pain or distress. Bed alarm on. Call light in reach.
[2021-11-28 02:03] VITALS: BP 107/62
--- NOTE | 2021-11-28 03:00 | NUR ---
Awake, confused. Wanting to get up to go home. Wanting to call . Reoriented by staff. "you guys are lying". Incontinent of urine. Niecy cares provided. Mepilex off buttocks. Barrier cream applied. Continues to take oxygen out of nose. Replaced by staff. Positioned for comfort. Bed alarm on. Call light in reach.
--- NOTE | 2021-11-28 06:20 | NUR ---
Patient rested well last night. Very drowsy this AM. Unable to take PO medications at this time.
[2021-11-28 06:22] VITALS: BP 134/76
--- NOTE | 2021-11-28 07:00 | NUR ---
REPORT RECEIVED FROM TERRY WAGNER.
--- NOTE | 2021-11-28 07:18 | NUR ---
[facility]
[2021-11-28 07:22] LABS: HEMATOCRIT 31.4 % (42.0-52.0); HEMOGLOBIN 9.7 g/dL (13.5-18.0); MEAN CELL VOLUME 97 fl (78-100); MEAN CORPUSCULAR HEMOGLOBIN 30 pg (27-31); MEAN CORPUSCULAR HGB CONC 31 g/dL (33-37); MEAN PLATELET VOLUME 11.7 fl (7.4-10.4); PLATELET COUNT 237 K/mm3 (130-400); RED BLOOD COUNT 3.25 M/mm3 (4.20-5.60); RED CELL DISTRIBUTION WIDTH 21.7 % (11.5-14.5); WHITE BLOOD COUNT 5.7 K/mm3 (4.8-10.8)
[2021-11-28 07:34] LABS: ALBUMIN 3.4 g/dL (3.4-4.8)
[2021-11-28 07:35] LABS: CALCIUM 9.1 mg/dL (8.3-10.5)
[2021-11-28 07:37] LABS: TOTAL PROTEIN 6.9 g/dL (6.2-8.1)
[2021-11-28 07:38] LABS: TOTAL BILIRUBIN 1.3 mg/dL (0.2-1.2)
[2021-11-28 07:48] LABS: LYMPHOCYTE 38 % (20-51); NEUTROPHILS 30 % (42-75)
[2021-11-28 07:49] LABS: BAND 1 % (0-10); MONOCYTE 26 % (3-10)
--- NOTE | 2021-11-28 08:15 | NUR ---
Pt transferred from bed to recliner chair with assistance of two via sit to stand lift. Pt is able to bear weight on legs when in the lift. Pt noted to be incontinent of urine. Brief changed and pt states he is comfortable at this time. Denies any pain. Breakfast set up for patient and he is eating without difficulty.
--- NOTE | 2021-11-28 10:00 | NUR ---
NURSE NOTIFIED OF LOW PULSE. PROVIDER AWARE.
[2021-11-28 10:16] VITALS: BP 107/66
--- NOTE | 2021-11-28 11:15 | NUR ---
DR RIGGS GAVE ORDERS TO HOLD PATIENTS METOPROLOL.
--- NOTE | 2021-11-28 14:00 | NUR ---
Pt encouraged to change positions and get out of the chair. The pt refuses and states that he is comfortable where he is. The pt has been in the chair since 0800 this morning with the exception of urinating. The pt is encouraged to move but refuses stating he will not move.
[2021-11-28 14:15] VITALS: BP 105/66
--- NOTE | 2021-11-28 14:30 | NUR ---
PATIENT RESTING WITH EYES CLOSED IN CHAIR THROUGH OUT THE DAY. EASILY AROUSED AT TIMES BUT WILL GO "BACK TO SLEEP" AFTER SPOKEN TO. PROVIDER IN TO SEE PATIENT. CALL LIGHT WITHIN REACH.
--- NOTE | 2021-11-28 17:00 | NUR ---
REPORT GIVEN TO TERRY WAGNER.
[2021-11-28 17:30] VITALS: BP 107/65
--- NOTE | 2021-11-28 18:46 | NUR ---
Patient has slept soundly since this nurse took report at 1700. Vital signs obtained and patient slept through. P 41. Metoporol on hold. No supper eaten. Bed alarm on. Call light in reach.
--- NOTE | 2021-11-28 19:03 | NUR ---
Report to Rocio DOMINGUEZ.
--- NOTE | 2021-11-28 20:45 | NUR ---
Patient resting in bed with eyes closed. Awakened briefly and given RT treatment. Too drowsy to take HS meds and held. Repositioned and changed. Returns to resting with eyes closed.
[2021-11-28 22:13] VITALS: BP 153/54
--- NOTE | 2021-11-28 22:30 | NUR ---
Patient awake calling out Emily several times and kicked off blankets. Assisted to reposition.
--- NOTE | 2021-11-29 01:06 | NUR ---
Patient rests in bed with eyes closed.
[2021-11-29 01:54] VITALS: BP 127/55
--- NOTE | 2021-11-29 03:46 | NUR ---
Patient resting in bed awake. Waves at nurse and states "I'm still here".
[2021-11-29 05:24] VITALS: BP 133/63
--- NOTE | 2021-11-29 06:51 | NUR ---
Patient has been awake since 0200. Alert. Coffee given and requesting popcorn. Report given to Ade DOMINGUEZ.
[2021-11-29 10:59] VITALS: BP 115/61
--- NOTE | 2021-11-29 11:55 | NUR ---
Patient resting in bed. Disoriented to place, time and situation. Alert and oriented to self. No c/o pain or discomfort. Patient too weak to transfer from bed to chair. Requesting to eat breakfast in bed. Assisted with breakfast. Reports he has been awake since 2 am. Bed in lowest and locked position. Call light within reach.
[2021-11-29 14:00] VITALS: BP 116/55
[2021-11-29 18:39] VITALS: BP 130/48
--- NOTE | 2021-11-29 19:00 | NUR ---
Report received from Ade DOMINGUEZ.
--- NOTE | 2021-11-29 20:15 | NUR ---
Patient rests in bed awake and visiting on phone. Alert to self, place, and month. Denies pain. HS meds reviewed and given.
[2021-11-29 22:28] VITALS: BP 129/53
--- NOTE | 2021-11-30 03:10 | NUR ---
Patient calling out and incontinent of urine. Changed and repositioned to right side. Barrier cream applied to buttucks. Patient has 3 open sores inner buttucks/skin split. Left open to air.
[2021-11-30 05:40] VITALS: BP 147/55
[2021-11-30 09:11] LABS: BASO # 0.06 K/mm3 (0.02-0.10); EOS # 0.07 K/mm3 (0.04-0.40); EOS % 1.2 % (0.0-4.0); HEMOGLOBIN 9.5 g/dL (13.5-18.0); LYMPH# 1.82 K/mm3 (1.50-4.00); MEAN CELL VOLUME 97 fl (78-100); MEAN CORPUSCULAR HEMOGLOBIN 30 pg (27-31); MEAN CORPUSCULAR HGB CONC 31 g/dL (33-37); MONO # 1.36 K/mm3 (0.20-0.80); NEU # 2.62 K/mm3 (1.40-6.50); PLATELET COUNT 248 K/mm3 (130-400); RED BLOOD COUNT 3.19 M/mm3 (4.20-5.60); RED CELL DISTRIBUTION WIDTH 20.9 % (11.5-14.5)
[2021-11-30 09:16] LABS: POTASSIUM 4.1 mmol/L (3.5-5.1)
[2021-11-30 09:18] LABS: CALCIUM 9.5 mg/dL (8.3-10.5)
[2021-11-30 10:31] VITALS: BP 136/61
[2021-11-30 14:22] VITALS: BP 125/74
--- NOTE | 2021-11-30 17:17 | NUR ---
Pt cooperative with care this shift. Understands use of call light. Mobility alarms in use for patient safety. Pt has denied discomfort when asked. Up to chair with [id number] mechanical lift/max assist due to patient's weakness. Using oxygen at 2 L/min. per n/c. Color good. Resp. unlabored. Eating with good appetite. Re-oriented to place and purpose as needed. Continent of urine, but he has some urinary urgency at times. Pt had large BM this morning. Redness to buttocks; applying moisure barrier oint. to buttocks and repositioning to sides when in bed. Pt's has been visiting most of the day. Monitoring on rounds.
[2021-11-30 17:46] VITALS: BP 150/74
--- NOTE | 2021-11-30 19:00 | NUR ---
Report received from Kate STEWART.
--- NOTE | 2021-11-30 20:00 | NUR ---
Patient resting in bed and awakened for HS meds. Pleasant. Oriented to self only at this time. Awake off and on to watch football game on TV.
--- NOTE | 2021-11-30 20:08 | NUR ---
Report given to oncoming shift nurseRocio.
--- NOTE | 2021-11-30 21:30 | NUR ---
Incontinent of urine and changed. Good matt-care done and barrier cream applied. Inner buttucks with 4 open slits to skin. Will monitor.
--- NOTE | 2021-11-30 21:30 | NUR ---
Dr. Taylor into see patient.
[2021-11-30 22:40] VITALS: BP 142/60
--- NOTE | 2021-12-01 01:12 | NUR ---
Patient rests with eyes closed. Respirations with ease.
--- NOTE | 2021-12-01 03:30 | NUR ---
Patient has been resting with eyes closed until now. Continent and nurse placed urinal-voids. Requesting to get up and sits self up on side of bed then assisted to rest back in bed. Explained time of day and too early to call his nephew but staff may assist him after breakfast. o2 on 2lpnc. Patient repositioned side to side while awake during this noc.
[2021-12-01 05:51] VITALS: BP 156/68
[2021-12-01 08:24] LABS: HEMATOCRIT 32.7 % (42.0-52.0); MEAN CELL VOLUME 97 fl (78-100); MEAN CORPUSCULAR HEMOGLOBIN 30 pg (27-31); MEAN CORPUSCULAR HGB CONC 31 g/dL (33-37); MEAN PLATELET VOLUME 11.6 fl (7.4-10.4); PLATELET COUNT 272 K/mm3 (130-400); RED BLOOD COUNT 3.36 M/mm3 (4.20-5.60); RED CELL DISTRIBUTION WIDTH 20.9 % (11.5-14.5); WHITE BLOOD COUNT 6.4 K/mm3 (4.8-10.8)
[2021-12-01 08:33] LABS: POTASSIUM 4.2 mmol/L (3.5-5.1)
[2021-12-01 08:34] LABS: CALCIUM 9.6 mg/dL (8.3-10.5)
[2021-12-01 08:46] LABS: LYMPHOCYTE 30 % (20-51); MONOCYTE 24 % (3-10); NEUTROPHILS 40 % (42-75)
[2021-12-01 10:18] VITALS: BP 134/50
[2021-12-01 14:00] VITALS: BP 128/47
--- NOTE | 2021-12-01 17:00 | NUR ---
REPORT RECEIVED FROM ALBERTO BARRON
[2021-12-01 18:00] VITALS: BP 138/73
--- NOTE | 2021-12-01 20:30 | NUR ---
PATIENT PLEASENT AND COOPERATIVE WITH CARES. PATIENT REFUSED TO BE TURNED IN BED TO RELIEVE PRESSURE FROM BUTTOCKS. PATIENT DENIES NEEDS OR COMPLAINTS AT THIS TIME. BED IN LOWEST LOCKED POSTION, CALL LIGHT WITHIN REACH.
[2021-12-01 22:03] VITALS: BP 154/55
--- NOTE | 2021-12-01 22:30 | NUR ---
Report received from Maxwell STEWART. Patient resting in bed with oxygen in place at 2L/NC. No signs of pain or distress. Bed alarm on. Call light in reach.
--- NOTE | 2021-12-01 22:50 | NUR ---
REPORT GIVEN TO TERRY WAGNER.
--- NOTE | 2021-12-02 00:14 | NUR ---
Resting quietly with eyes closed. No signs of pain or distress. Oxygen in place at 2L/NC. Bed alarm on. Call light in reach.
--- NOTE | 2021-12-02 01:30 | NUR ---
Stool for occult blood obtained and taken to lab. Resulted negative.
[2021-12-02 02:12] VITALS: BP 155/60
--- NOTE | 2021-12-02 05:11 | NUR ---
Incontinent of urine. Brief, linens and Pericares by staff. Remains confused to place and situation. Able to call TITLE ASSISTANT and this nurse by name. Repostioned in bed. Will not lay on sides to off load buttocks. Denies pain.
[2021-12-02 06:13] VITALS: BP 152/61
--- NOTE | 2021-12-02 06:24 | NUR ---
Patient noted to be yelling out loudly. Wanting to know "where is the food cart". Oriented to time of breakfast. Staff has been in patients room due to him yelling out 3 times past 20 minutes.
--- NOTE | 2021-12-02 07:09 | NUR ---
Report to Ade DOMINGUEZ.
[2021-12-02 08:46] LABS: HEMATOCRIT 31.6 % (42.0-52.0); HEMOGLOBIN 9.8 g/dL (13.5-18.0); MEAN CELL VOLUME 96 fl (78-100); MEAN CORPUSCULAR HEMOGLOBIN 30 pg (27-31); MEAN CORPUSCULAR HGB CONC 31 g/dL (33-37); MEAN PLATELET VOLUME 10.7 fl (7.4-10.4); PLATELET COUNT 288 K/mm3 (130-400); RED CELL DISTRIBUTION WIDTH 20.9 % (11.5-14.5); WHITE BLOOD COUNT 7.4 K/mm3 (4.8-10.8)
[2021-12-02 08:57] LABS: ALBUMIN 3.7 g/dL (3.4-4.8)
[2021-12-02 08:58] LABS: POTASSIUM 4.2 mmol/L (3.5-5.1)
[2021-12-02 08:59] LABS: CALCIUM 10.1 mg/dL (8.3-10.5)
[2021-12-02 09:00] LABS: TOTAL PROTEIN 7.2 g/dL (6.2-8.1)
[2021-12-02 09:02] LABS: TOTAL BILIRUBIN 1.1 mg/dL (0.2-1.2)
[2021-12-02 09:11] LABS: LYMPHOCYTE 27 % (20-51); MONOCYTE 22 % (3-10); NEUTROPHILS 50 % (42-75)
[2021-12-02 10:15] VITALS: BP 131/62
== END 2021-12-02 15:05 | disposition swing bed (61) | DRG 446 ==
LOC: MED/SURG 08:28
PROVIDERS: Family Medicine; Nurse Practitioner; ADMIT Physician Assistant
DX: K81.0 Acute cholecystitis (principal); D46.9 Myelodysplastic syndrome, unspecified; J44.9 Chronic obstructive pulmonary disease, unspecified; I10 Essential (primary) hypertension; E87.6 Hypokalemia; N28.9 Disorder of kidney and ureter, unspecified; Z88.1 Allergy status to other antibiotic agents; Z79.82 Long term (current) use of aspirin; K59.00 Constipation, unspecified
CPT/HCPCS: J1650; J1940

== ENCOUNTER 2021-12-02 13:04 | Inpatient (IN) | payer MEDICARE, BC ==
[~2021-12-02] VITALS: Ht 182.9 cm; Wt 91.7 kg
[2021-12-02 15:23] VITALS: BP 121/75
[2021-12-03 06:29] VITALS: BP 166/63
[2021-12-03 07:43] LABS: PH-URINE 7.5 (5.0 - 8.0); URINE APPEARANCE CLEAR; URINE BILIRUBIN NEGATIVE (NEGATIVE); URINE BLOOD NEGATIVE (NEGATIVE); URINE COLOR YELLOW; URINE GLUCOSE NEGATIVE (NEGATIVE); URINE KETONE NEGATIVE (NEGATIVE); URINE LEUKOCYTE ESTERASE TRACE (NEGATIVE); URINE NITRATE NEGATIVE (NEGATIVE); URINE PROTEIN(semi-quant) 1+ (NEGATIVE); URINE UROBILINOGEN NORMAL (NORMAL)
[2021-12-03 18:10] VITALS: BP 113/56
[2021-12-04 06:00] VITALS: BP 154/64
[2021-12-04 18:29] VITALS: BP 92/52
[2021-12-05 05:56] VITALS: BP 110/53
[2021-12-05 07:44] LABS: BASO # 0.05 K/mm3 (0.02-0.10); EOS # 0.06 K/mm3 (0.04-0.40); HEMATOCRIT 31.5 % (42.0-52.0); HEMOGLOBIN 9.8 g/dL (13.5-18.0); LYMPH# 1.53 K/mm3 (1.50-4.00); MEAN CELL VOLUME 96 fl (78-100); MEAN CORPUSCULAR HEMOGLOBIN 30 pg (27-31); MEAN CORPUSCULAR HGB CONC 31 g/dL (33-37); MEAN PLATELET VOLUME 11.6 fl (7.4-10.4); MONO # 1.26 K/mm3 (0.20-0.80); NEU # 3.11 K/mm3 (1.40-6.50); PLATELET COUNT 282 K/mm3 (130-400); RED BLOOD COUNT 3.28 M/mm3 (4.20-5.60); RED CELL DISTRIBUTION WIDTH 20.4 % (11.5-14.5); WHITE BLOOD COUNT 6.1 K/mm3 (4.8-10.8)
[2021-12-05 07:47] LABS: POTASSIUM 4.1 mmol/L (3.5-5.1)
[2021-12-05 07:48] LABS: CALCIUM 9.8 mg/dL (8.3-10.5)
[2021-12-05 18:01] VITALS: BP 122/51
[2021-12-06 06:19] VITALS: BP 156/58
[2021-12-06 18:10] VITALS: BP 106/65
[2021-12-07 06:03] VITALS: BP 144/61
[2021-12-07 14:58] LABS: HEMATOCRIT 29.2 % (42.0-52.0); HEMOGLOBIN 9.1 g/dL (13.5-18.0)
[2021-12-07 18:48] VITALS: BP 140/44
[2021-12-08 06:30] LABS: HEMATOCRIT 30.1 % (42.0-52.0); HEMOGLOBIN 9.4 g/dL (13.5-18.0); MEAN CELL VOLUME 98 fl (78-100); MEAN CORPUSCULAR HEMOGLOBIN 31 pg (27-31); MEAN CORPUSCULAR HGB CONC 31 g/dL (33-37); MEAN PLATELET VOLUME 11.9 fl (7.4-10.4); PLATELET COUNT 226 K/mm3 (130-400); RED BLOOD COUNT 3.08 M/mm3 (4.20-5.60); RED CELL DISTRIBUTION WIDTH 20.7 % (11.5-14.5)
[2021-12-08 06:33] LABS: ALBUMIN 3.6 g/dL (3.4-4.8)
[2021-12-08 06:34] VITALS: BP 139/50
[2021-12-08 06:34] LABS: POTASSIUM 4.5 mmol/L (3.5-5.1)
[2021-12-08 06:35] LABS: CALCIUM 10.2 mg/dL (8.3-10.5)
[2021-12-08 06:36] LABS: TOTAL PROTEIN 7.3 g/dL (6.2-8.1)
[2021-12-08 06:38] LABS: TOTAL BILIRUBIN 1.2 mg/dL (0.2-1.2)
[2021-12-08 07:50] LABS: HYPOCHROMIA 1+; LYMPHOCYTE 14 % (20-51); MICROCYTOSIS 1+; MONOCYTE 13 % (3-10); NEUTROPHILS 73 % (42-75); OVALOCYTES 1+
== END 2021-12-08 10:47 | disposition other institution (70) | DRG 948 ==
LOC: MED/SURG 13:04
PROVIDERS: Family Medicine; ADMIT Physician Assistant
PROC: 30233N1 Transfusion of Nonautologous Red Blood Cells into Peripheral Vein, Percutaneous Approach (ICD-10-PCS; principal; 2021-12-02)
DX: R53.81 Other malaise (principal); K81.0 Acute cholecystitis; D46.9 Myelodysplastic syndrome, unspecified; J44.9 Chronic obstructive pulmonary disease, unspecified; I12.9 Hypertensive chronic kidney disease with stage 1 through stage 4 chronic kidney disease, or unspecified chronic kidney disease; N18.9 Chronic kidney disease, unspecified; E87.6 Hypokalemia; I10 Essential (primary) hypertension; G47.00 Insomnia, unspecified; Z87.891 Personal history of nicotine dependence; Z88.8 Allergy status to other drugs, medicaments and biological substances
CPT/HCPCS: J0696

== ENCOUNTER 2021-12-08 10:47 | Inpatient (IN) | payer MEDICARE, BC ==
[~2021-12-08] VITALS: Ht 182.9 cm; Wt 88.3 kg
--- NOTE | 2021-12-08 17:59 | NUR ---
Attempted to visit with Caren. She was not at the bedside when the CM went into the room. Due to Job's condition unable to visit with him regarding LTC vs Hospice care.
--- NOTE | 2021-12-08 18:10 | NUR ---
Clarification of days: 11-16-21 ER D/C to Acute 11-16-21 Acute thru 11/19/21 3 days 11-19-21 SWB thru 11-26-21 7 days 11/26/21 Acute thru 12/02/21 6 days 12/02/21 SWB thru 12/08/21 6 days. Total SWB Days 13 Total Acute days 9
[2021-12-08 18:20] VITALS: BP 107/55
--- NOTE | 2021-12-08 19:20 | NUR ---
Report received Luna DOMINGUEZ. Patient sleeping soundly in bed with oxygen in place at 2L/NC. Does not arouse to verbal stimuli but TAILINGS DAM PUMPER states at shift change he opened eyes and was flailing arms about during pericares and brief change. Respirations even and non-labored. No signs of distress or pain. Assessment completed. calls at shift change asking to speak to Dr. Clark. Dr. Clark notified by Litzy DOMINGUEZ. Bed alarm on. Call light in reach. Continue to monitor.
--- NOTE | 2021-12-08 23:35 | NUR ---
Yelling out for Emily. Staff to room. Incontinent of urine. Pericares and repositioned by staff. Mouth dry but with phelgm in throat. Oral cares by staff. Repositioned for comfort. Bed alarm on. Call light in reach.
[2021-12-08 23:48] VITALS: BP 145/56
--- NOTE | 2021-12-09 01:32 | NUR ---
Remains awake but staying in bed. Yelling out for "Winner". Staff in to intervene PRN.
--- NOTE | 2021-12-09 02:46 | NUR ---
Awake, but not trying to crawl OOB. Yelling for various wives. Did not know this nurse or FIRER POWERHOUSE by name. Did ask for a drink of water. Took several drinks but also coughed up a large amount of thick yellow phelgm. HOB elevated. Brief dry at this time. Urinal placed, did not void.
[2021-12-09 02:51] VITALS: BP 131/51
--- NOTE | 2021-12-09 06:16 | NUR ---
Patient awake but coughs and developes thick phelgm with drinking water. AM medication held D/T decreased reposivness. Incontinent of urine. Niecy cares provided. Oral cares provided, chapstick to dry lips applied.
--- NOTE | 2021-12-09 07:01 | NUR ---
Report to Ade DOMINGUEZ.
[2021-12-09 07:27] LABS: HEMATOCRIT 30.3 % (42.0-52.0); HEMOGLOBIN 9.2 g/dL (13.5-18.0); MEAN CELL VOLUME 100 fl (78-100); MEAN CORPUSCULAR HEMOGLOBIN 30 pg (27-31); MEAN CORPUSCULAR HGB CONC 30 g/dL (33-37); MEAN PLATELET VOLUME 11.6 fl (7.4-10.4); PLATELET COUNT 211 K/mm3 (130-400); RED BLOOD COUNT 3.04 M/mm3 (4.20-5.60); RED CELL DISTRIBUTION WIDTH 20.9 % (11.5-14.5)
[2021-12-09 07:32] LABS: ALBUMIN 3.5 g/dL (3.4-4.8); POTASSIUM 4.4 mmol/L (3.5-5.1)
[2021-12-09 07:33] LABS: CALCIUM 10.1 mg/dL (8.3-10.5)
[2021-12-09 07:34] LABS: TOTAL PROTEIN 7.3 g/dL (6.2-8.1)
[2021-12-09 08:26] LABS: BAND 1 % (0-10); HYPOCHROMIA 1+; LYMPHOCYTE 13 % (20-51); MICROCYTOSIS 1+; MONOCYTE 12 % (3-10); NEUTROPHILS 74 % (42-75); NUCLEATED RED BLOOD CELL 1 (0-6)
[2021-12-09 08:27] LABS: OVALOCYTES 1+
--- NOTE | 2021-12-09 08:47 | NUR ---
Patient resting in bed. at bedside. Responds to painful stimuli. Oral care given. Family expected to visit patient shortly. Patient disoriented. FLACC 0 for pain. Bed in lowest and locked position. Call light within reach.
[2021-12-09 17:52] VITALS: BP 121/67
--- NOTE | 2021-12-09 19:00 | NUR ---
Report received from Ade DOMINGUEZ.
--- NOTE | 2021-12-09 20:00 | NUR ---
Patient rests in bed with eyes closed. Respirations shallow with ease.
--- NOTE | 2021-12-09 23:38 | NUR ---
Patient awake and calling out but speech mumbled. Incontinent of urine and changed and repositioned to his right side. Heels floated. Refuses oral care.
--- NOTE | 2021-12-10 01:35 | NUR ---
Patient resting in bed with gown and covers off and on floor. Watch on floor broken and attends ripped. Changed, repositioned and covers and oxygen reapplied.
[2021-12-10 06:12] VITALS: BP 158/54
[2021-12-10 06:59] LABS: BASO # 0.07 K/mm3 (0.02-0.10); EOS # 0.12 K/mm3 (0.04-0.40); EOS % 1.8 % (0.0-4.0); HEMOGLOBIN 9.6 g/dL (13.5-18.0); LYMPH# 1.12 K/mm3 (1.50-4.00); MEAN CELL VOLUME 99 fl (78-100); MEAN CORPUSCULAR HEMOGLOBIN 30 pg (27-31); MEAN CORPUSCULAR HGB CONC 30 g/dL (33-37); MEAN PLATELET VOLUME 11.2 fl (7.4-10.4); MONO # 1.35 K/mm3 (0.20-0.80); NEU # 4.11 K/mm3 (1.40-6.50); PLATELET COUNT 217 K/mm3 (130-400); RED BLOOD COUNT 3.25 M/mm3 (4.20-5.60); RED CELL DISTRIBUTION WIDTH 20.8 % (11.5-14.5); WHITE BLOOD COUNT 6.8 K/mm3 (4.8-10.8)
[2021-12-10 07:01] LABS: POTASSIUM 4.2 mmol/L (3.5-5.1)
[2021-12-10 07:02] LABS: CALCIUM 10.3 mg/dL (8.3-10.5)
--- NOTE | 2021-12-10 11:33 | NUR ---
Called [facility]. Spoke with the intake nurse. She will see if they can come see Caren today. Advised that we were looking to wednesday. We will change his status to palliative care.
--- NOTE | 2021-12-10 16:41 | NUR ---
José Manuel social sciences research scientist [facility] with
--- NOTE | 2021-12-10 19:15 | NUR ---
Report received from Ade DOMINGUEZ. Patient resting in bed with eyes closed. Oxygen in place at 2L/NC. Respirations even and non-labored. No signs of pain or distress. Bed alarm on. Call light in reach.
--- NOTE | 2021-12-10 21:45 | NUR ---
Incontinent cares and repositioned. Assessment completed. Arouses briefly with verbal stimuli and answers when asked questions but conversation confused. No signs of distress. Continue to monitor. Bed alarm on. Call light in reach.
--- NOTE | 2021-12-11 02:46 | NUR ---
Resting quietly. Staff in to turn and provide incontinent cares. Bed alarm on. Call light in reach.
--- NOTE | 2021-12-11 04:20 | NUR ---
BRAYAN in room to check on patient. Summons this nurse. Patient noted to be without pulse or repirations. verified by 2nd nurse Remi Lynn RN. 04:29- Walter PARISH notified of . 04:33- Emily notified of . declines this nurse to make any phone calls. States she would like to come up to see patient.
--- NOTE | 2021-12-11 04:51 | NUR ---
[facility] notified of by Remi Lynn RN.
--- NOTE | 2021-12-11 05:00 | NUR ---
here to see . States home with be Dari.
--- NOTE | 2021-12-11 05:28 | NUR ---
Xuan with [facility] notified of , leaves at this time. Belongings sent. Cell phone, 2 pairs of glasses, watch.
--- NOTE | 2021-12-11 08:10 | NUR ---
Pt is taken by Rodrigo [facility]ing home at this time.
== END 2021-12-11 08:10 | disposition expired | DRG 948 ==
LOC: MED/SURG 10:47
PROVIDERS: Physician Assistant; ADMIT Family Medicine
DX: R53.81 Other malaise (principal); K81.0 Acute cholecystitis; I13.0 Hypertensive heart and chronic kidney disease with heart failure and stage 1 through stage 4 chronic kidney disease, or unspecified chronic kidney disease; D46.9 Myelodysplastic syndrome, unspecified; J44.9 Chronic obstructive pulmonary disease, unspecified; N18.9 Chronic kidney disease, unspecified; R13.10 Dysphagia, unspecified; R53.1 Weakness; Z79.82 Long term (current) use of aspirin; Z88.8 Allergy status to other drugs, medicaments and biological substances; I50.9 Heart failure, unspecified
CPT/HCPCS: Q9967